=== PATIENT | female | born 1970 | race African-American/Black ===

== ENCOUNTER 2017-07-23 09:38 | Inpatient (IN) | payer BC, OTHER ==
[2017-07-23] MEDS ORDERED: hydrALAZINE HCL 20 MG/ML VIAL IVPUSH ONE ×2 (10:15→11:02)
--- NOTE | 2017-07-23 10:18 | PDOC ---
History of Present Illness - General Chief Complaint: Blood Pressure Problem Stated Complaint: HIGH BP Time Seen by Provider: 07/23/17 09:50 History Source: Patient Exam Limitations: No Limitations - History of Present Illness Initial Comments: 07/23/17 10:23 47 y.o. F with pmh of HTN (not on meds) presenting with headache and chest tightness. 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 Headache was frontal, nonradiating, and constant. Chest tightness was under the left breast and right rib, pressure like, nonradiating. Patient has never had these symptoms before. Patient also endorses nausea, slurred speech, blurry vision, diaphoresis, and left/right arm numbness (intermittently x few months). Patient denies shortness of breath, abdominal pain, V/D/C, dysuria, hematuria. PSH- denies All- NKDA SH- + Cocaine use (3 years, last use 1 week ago). +smoking (1/ ppd, 15 yrs). Denies alcohol PCP- Dr. Dorman, Y 07/23/17 14:34 NIH Stroke Scale - Last Known Well Date/Time & Onset Date Last Known Well: 07/22/17 Time Last Known Well: 15:00 - Initial Evaluation Level of consciousness: Alert Ask patient the month and their age: Answers both correctly Ask patient to open & close eyes; make fist and let go: Obeys both correctly Best gaze (horizontal eye movement): Normal Visual field testing: No visual field loss Facial paresis (Show teeth/raise eyebrows/close eyes tight): Normal symmetrical movement Motor Function: Left Arm: Normal Motor Function: Right Arm: Normal (extends arm 90 (or 45) degrees for 10 seconds without drift Motor Function: Left Leg: Normal (extends leg 30 degrees for 5 seconds without drift) Motor Function: Right Leg: Normal (extends leg 30 degrees for 5 seconds without drift) Limb Ataxia: No ataxia Sensory(Use pinprick test arms,legs,trunk,face/side to side): Normal Best language (Describe picture, name items, read sentences): No Aphasia Dysarthria (read several words): Normal articulation Extinction and Inattention: No abnormality - Total Score NIH Stroke Scale Score: 0 Past History - Past Medical History Allergies/Adverse Reactions: Allergies Allergy/AdvReac Type Severity Reaction Status Date / Time No Known Allergies Allergy Verified 07/23/17 09:39 Home Medications: Ambulatory Orders NK [No Known Home Medication] 07/23/17 HTN: Yes (NOT MEDICATED.) - Suicide/Smoking/Psychosocial Hx Smoking History: Current every day smoker Number of Cigarettes Smoked Daily: 6 Information on smoking cessation initiated: No Hx Alcohol Use: Yes (ON OCCASSION.) Drug/Substance Use Hx: No Substance Use Type: Alcohol Review of Systems - Review of Systems Able to Perform ROS?: Yes Comments:: 07/23/17 10:25 GENERAL/CONSTITUTIONAL: No fever or chills. No weakness HEAD, EYES, EARS, NOSE AND THROAT: +change in vision. +slurred speech, + headacheNo ear pain or discharge. No sore throat. CARDIOVASCULAR:+Chest pressure, No shortness of breath RESPIRATORY: No cough, wheezing, or hemoptysis. GASTROINTESTINAL: No nausea, vomiting, diarrhea or constipation. GENITOURINARY: No dysuria, frequency, or change in urination. MUSCULOSKELETAL: No joint or muscle swelling or pain. No neck or back pain. SKIN: No rash NEUROLOGIC: +headache, vertigo, loss of consciousness, or change in strength. + left/right arm numbness/tingling ENDOCRINE: No increased thirst. No abnormal weight change HEMATOLOGIC/LYMPHATIC: No anemia, easy bleeding, or history of blood clots. ALLERGIC/IMMUNOLOGIC: No hives or skin allergy. *Physical Exam - Vital Signs Last Vital Signs Temp Pulse Resp BP Pulse Ox 98.1 F 106 H 20 204/108 100 07/23/17 09:39 07/23/17 09:39 07/23/17 09:39 07/23/17 09:39 07/23/17 09:39 - Physical Exam Comments: 07/23/17 10:25 GENERAL: Awake, alert, and fully oriented, in no acute distress HEAD: No signs of trauma, normocephalic, atraumatic EYES: PERRLA, EOMI, sclera anicteric, conjunctiva clear ENT: Auricles normal inspection, hearing grossly normal, nares patent, oropharynx clear without exudates. Moist mucosa NECK: Normal ROM, supple, no lymphadenopathy, JVD, or masses LUNGS: No distress, speaks full sentences, clear to auscultation bilaterally HEART: Regular rate and rhythm, normal S1 and S2, no murmurs, rubs or gallops, peripheral pulses normal and equal bilaterally. ABDOMEN: Soft, nontender, normoactive bowel sounds. No guarding, no rebound. No masses EXTREMITIES: Normal inspection, Normal range of motion, no edema. No clubbing or cyanosis. NEUROLOGICAL: Cranial nerves II through XII grossly intact. Normal speech, no focal sensorimotor deficits. 5/5 strength bilaterally, sensation intact bilaterally. no cerebellar deficits. SKIN: Warm, Dry, normal turgor, no rashes or lesions noted. 07/23/17 14:35 ED Treatment Course - LABORATORY CBC & Chemistry Diagram: 07/23/17 10:22 07/23/17 10:22 - RADIOLOGY Radiology Studies Ordered: Category Date Time Status HEAD CT WITHOUT CONTRAST [CT] Stat CT Scan 07/23/17 10:45 Ordered Medical Decision Making - Medical Decision Making 07/23/17 10:33 47 y.o. F with pmh of HTN presenting with headache, chest pressure, and elevated BP. DDx: Hypertensive emergency, ACS, TIA, hemorrhagic stroke, PRES, SAH Plan: CBC, CMP, Mg, Phos, EKG, Cardiac Profile, UA, ucx, upreg, utox, 10 mg IV hydralazine, Head CT, Pain control 07/23/17 13:58 CBC, CMP unremarkable UA- Nitrite +, will give 1 dose of rocephin 1 g IV Utox- + for marijuana/cocaine 07/23/17 13:59 CT Head- Concerning for edema and elevated ICP- will order MRI brain w/o contrast. Patient given 324mg of aspiring Patient to be admitted to hospitalist. Patient accepted *DC/Admit/Observation/Transfer Diagnosis at time of Disposition: Hypertensive emergency - Discharge Dispostion Admit: Yes - Referrals Referrals: Adan Dorman [Primary Care Provider] -
[2017-07-23] MEDS ORDERED: ACETAMINOPHEN 325 MG TABLET (FP) PO ONE (10:19)
[2017-07-23] MEDS ORDERED: hydrALAZINE HCL 20 MG/ML VIAL ONE (10:24)
[2017-07-23] MEDS ORDERED: ACETAMINOPHEN 325 MG TABLET (FP) ONE (10:24)
--- NOTE | 2017-07-23 10:40 | PDOC ---
Attending Attestation - Resident Resident Name: Yovanny Pinto - ED Attending Attestation I have performed the following: I have examined & evaluated the patient, The case was reviewed & discussed with the resident, I agree w/resident's findings & plan, Exceptions are as noted - Medical Decision Making 07/23/17 10:37 A portion of this note was written by my scribe, under my supervision. Vital Signs Temp Pulse Resp BP Pulse Ox 98.1 F 102 H 17 209/121 100 07/23/17 09:39 07/23/17 10:30 07/23/17 10:30 07/23/17 10:30 07/23/17 10:31 47-year-old female with history of hypertension, not a medications, presents with headache and chest pain since yesterday. Patient reported gradual onset of tension-like headache without photophobia. Reports nausea and vomiting from the headache. Stated yesterday she also developed chest tightness worsened with exertion and shortness of breath. Reports some diaphoresis. Never had a stress test or an echo. Patient last use cocaine one week ago. This is concerning for hypertensive emergency. We'll need a head CT to rule out TIA and stroke given the patient was slurring her speech yesterday. We'll also need chest x-ray, troponin to rule out DC. It head CT done shows no bleed, we' ll give aspirin to the patient. For now, we'll avoid beta blockers given her cocaine history but we'll attempt to control her blood pressure. Ultimately, the patient should be admitted to the hospital for further management. <Robert Bautista - Last Filed: 07/23/17 10:40> - HPI HPI: 07/23/17 10:49 Patient is a 47 year old female with a significant past medical history of HTN who presents to the ED with complaints of headache that began 3pm yesterday. Patient reports frontal headache began yesterday at 3pm while sitting at work. She reports headache pain is intermittent and has been increasing gradually in intensity since it began yesterday. Patient reports experiencing episodes of nausea, and slurred speech yesterday secondary to headache. She report experiencing neck pain and chest pressure secondary to headache. She states she experienced blurred vision yesterday secondary with headache. Patient reports experiencing chest pressure, and intermittent SOB secondary to headache. Denies fever, chills. Denies vomiting, coughing. Denies any other symptoms. Allergies: None Surgical history: None Social history: Current cocaine user (last 1 week). Current Marijuana user. Social drinker. Current smoker (6 cigarettes per day). PMD: Dr. Dorman - Physicial Exam PE: 07/23/17 10:49 GENERAL: Awake, alert, and fully oriented, in no acute distress HEAD: No signs of trauma EYES: PERRLA, EOMI, sclera anicteric, conjunctiva clear ENT: Auricles normal inspection, hearing grossly normal, nares patent, oropharynx clear without exudates. Moist mucosa NECK: Normal ROM, supple, no lymphadenopathy, JVD, or masses LUNGS: Breath sounds equal, clear to auscultation bilaterally. No wheezes, and no crackles HEART: Regular rate and rhythm, normal S1 and S2, no murmurs, rubs or gallops ABDOMEN: Soft, nontender, normoactive bowel sounds. No guarding, no rebound. No masses EXTREMITIES: +5/5 strength in all extremities. +Sensations intact throughout. Normal range of motion, no edema. No clubbing or cyanosis. No cords, erythema, or tenderness NEUROLOGICAL: No pronator drift. Cranial nerves II through XII grossly intact. Normal speech, normal gait SKIN: Warm, Dry, normal turgor, no rashes or lesions noted. - Medical Decision Making 07/23/17 10:49 Documentation prepared by Tico Bartlett, acting as infertility medical assistant for Robert Bautista MD. <Tico Bartlett - Last Filed: 07/23/17 10:49> Heart Score/ECG Review - History History: Highly suspicious - Electrocardiogram EKG: Non specific repolarization disturbance - Age Age: 45-65 - Risk Factors Based on the list above the patient has:: 1-2 risk factors #1 ECG reviewed & interpreted by me at: 10:00 07/23/17 10:40 NSR 97, no std/renetta, normal axis ,normal intervals, LVH, QTC 454 msec <Robert Bautista - Last Filed: 07/23/17 10:40> NIH Stroke Scale - Last Known Well Date/Time & Onset Date Last Known Well: 07/22/17 - Initial Evaluation Level of consciousness: Alert Ask patient the month and their age: Answers both correctly Ask patient to open & close eyes; make fist and let go: Obeys both correctly Best gaze (horizontal eye movement): Normal Visual field testing: No visual field loss Facial paresis (Show teeth/raise eyebrows/close eyes tight): Normal symmetrical movement Motor Function: Left Arm: Normal Motor Function: Right Arm: Normal (extends arm 90 (or 45) degrees for 10 seconds without drift Motor Function: Left Leg: Normal (extends leg 30 degrees for 5 seconds without drift) Motor Function: Right Leg: Normal (extends leg 30 degrees for 5 seconds without drift) Limb Ataxia: No ataxia Sensory(Use pinprick test arms,legs,trunk,face/side to side): Normal Best language (Describe picture, name items, read sentences): No Aphasia Dysarthria (read several words): Normal articulation Extinction and Inattention: No abnormality - Total Score NIH Stroke Scale Score: 0 <Robert Bautista - Last Filed: 07/23/17 10:40>
[2017-07-23 11:20] LABS: URINE APPEARANCE SLCLOUDY; URINE BILIRUBIN NEGATIVE (NEGATIVE); URINE BLOOD NEGATIVE (NEGATIVE); URINE COLOR YELLOW; URINE GLUCOSE (UA) NEGATIVE (NEGATIVE); URINE KETONE TRACE (NEGATIVE); URINE NITRITE POSITIVE (NEGATIVE); URINE PROTEIN NEGATIVE (NEGATIVE); URINE UROBILINOGEN NEGATIVE mg/dL (0.2-1.0)
[2017-07-23 11:24] LABS: BASOPHIL 0.5 % (0-2.0); EOSINOPHIL 1.4 % (0-4.5); MCH 30.3 pg (25.7-33.7); MCHC 32.7 g/dl (32.0-36.0); MEAN CELL VOLUME 92.7 fl (80-96); NEUTROPHILS 72.7 % (42.8-82.8); PLATELET COUNT 232 K/MM3 (134-434); RDW 14.6 % (11.6-15.6); WHITE BLOOD COUNT 10.9 K/mm3 (4.0-10.0)
[2017-07-23 11:34] LABS: URINE BACTERIA RARE /hpf (NONE SEEN); URINE MUCUS RARE; URINE RBC 1 /hpf (0-3); URINE WBC 7 /hpf (3-5)
[2017-07-23 11:38] LABS: URINE MARIJUANA THC POSITIVE ng/ml (CUTOFF=50)
[2017-07-23 11:56] LABS: ALBUMIN 4.2 g/dl (3.4-5.0); ANION GAP 10 (8-16); BILIRUBIN,TOTAL 0.3 mg/dL (0.2-1.0); CALCIUM 9.5 mg/dL (8.5-10.1); CO2 25 mmol/L (21-32); CREATININE 0.9 mg/dL (0.55-1.02); GLUCOSE,RANDOM 89 mg/dL (74-106); MAGNESIUM 1.8 mg/dL (1.8-2.4); SGOT/AST 15 U/L (15-37); SGPT/ALT 20 U/L (12-78); TOT PROT 8.4 g/dl (6.4-8.2)
[2017-07-23 11:59] LABS: ALK PHOS 75 U/L (45-117); CPK 67 IU/L (26-192); TROPONIN I < 0.02 ng/ml (0.00-0.05)
--- NOTE | 2017-07-23 12:01 | EKG ---
Test Reason : Blood Pressure : / mmHG Vent. Rate : 097 BPM Atrial Rate : 097 BPM P-R Int : 130 ms QRS Dur : 078 ms QT Int : 358 ms P-R-T Axes : 076 026 071 degrees QTc Int : 454 ms NORMAL SINUS RHYTHM BIATRIAL ENLARGEMENT LEFT VENTRICULAR HYPERTROPHY NONSPECIFIC ST ABNORMALITY NO PREVIOUS ECGS AVAILABLE Confirmed by YAO ALEXANDER MD ([id number]) on 07/23/2017 12:01:23 PM Referred By: Confirmed By:YAO ALEXANDER MD
[2017-07-23] MEDS ORDERED: METOCLOPRAMIDE HCL INJECTION 10 MG/2 ML VIAL IVPUSH ONE (12:11)
[2017-07-23] MEDS ORDERED: METOCLOPRAMIDE HCL INJECTION 10 MG/2 ML VIAL ONE (12:14)
[2017-07-23] MEDS ORDERED: CEFTRIAXONE 1 GM in DEXTROSE 5%-WATER - 50 ML IVPB ONE (12:45)
[2017-07-23] MEDS ORDERED: CEFTRIAXONE 50 ML ONE (13:07)
[2017-07-23 13:22] LABS: URINE LEUK ESTERASE Negative (NEGATIVE)
[2017-07-23] MEDS ORDERED: ASPIRIN 325 MG TABLET PO ONE (14:00)
[2017-07-23] MEDS ORDERED: ASPIRIN 81 MG CHEWABLE TABLETS ONE (14:11)
[2017-07-23] MEDS ORDERED: LORazepam 2 MG/ML SDV VIAL ONE (16:16)
[2017-07-23] MEDS ORDERED: LORazepam 2 MG/ML SDV VIAL IVPUSH ONE (16:17)
--- NOTE | 2017-07-23 17:21 | PN ---
Teaching Attending Note Name of Resident: Nixon Hensley ATTENDING PHYSICIAN STATEMENT I saw and evaluated the patient. I reviewed the resident's note and discussed the case with the resident. I agree with the resident's findings and plan as documented. SUBJECTIVE:47yo F with PMH HTN (not on medications) and continuous cocaine abuse (snorts) presented to the ER with frontal KNIGHT, CP and slurred speech. Upon arrival found to have BP 209/121. was given Hydralazine 10mg IVP x2 with improvement in BP to 170/104. pt states the CP has since resolved but continues to have front KNIGHT and feels like her speech is improved but continues to have KNIGHT. denies blurred vision (although as per ER record had on presentation) , weakness, sensation changes, N/V/C/D. admits to urinary frequency. no dysuria or hematuria states she was told 2 years ago had HTN but was never placed on medications Last used cocaine 5 days ago OBJECTIVE: Last Vital Signs Temp Pulse Resp BP Pulse Ox 98.1 F 99 H 20 165/108 99 07/23/17 09:39 07/23/17 16:06 07/23/17 16:06 07/23/17 16:06 07/23/17 16:06 General drowsy, HEENT EOMI, PERRL CV S1 S2 RRR no murmur/rub/gallop no chest wall tenderness Lungs CTA B/L no wheezing/rales/rhonchi Neuro CN II - XII grossly intact, strength equal in all extremities, sensation grossly intact gait not tested ASSESSMENT AND PLAN: 47yo F with PMH HTN and continuous cocaine use presented with HTN and slurred speech 1. HTN emergency- will transfer this pt to MICU for close monitoring. CT head showing increased intracranial pressure with empty sella turcica. MRI stat ordered. spoke with Neurosurgery who will come and evaluate pt. will start on nicardipine ggt if BP elevates. goal SBP <170. avoid beta blockers. trend cardiac enzymes q8H, will give ativan for MRI. received asa in the ER will hold any other blood thinners 2. COntinous cocaine abuse- monitor for withdrawals. ativan prn. counseled on risks assoc with cocaine use. 3. UTI- start ceftriaxone. f/u cx 4. DVT ppx- scd 5. MICU monitoring. accepted to MICU The care of this patient involved high complexity decision making to prevent further life threatening deterioration of the patient's condition and/or to evaluate & treat vital organ system(s) failure or risk of failure. 50 minutes
--- NOTE | 2017-07-23 17:39 | CONSULT ---
Consultation: REQUESTING PROVIDER: Dr. Robert Bautista CONSULT REQUEST: We have been asked to medically evaluate this patient for Hypertensive Emergency HISTORY OF PRESENT ILLNESS: Patient is a 47 year old female with a PMHx of HTN, on no medication, and cocaine abuse who presented initially for nonradiating left-sided pressure like chest pain and tightness that started yesterday at work associated with a gradual onset of a tension-like frontal headache. Patient describes the headache as constant and interfering with her daily activities and associated with nausea and non-bilious nonbloody vomiting x2. Patient also states new onset of slurred speech that started yesterday associated with shortness of breath but has resolved since admission. Patient states she never had similar episodes in the past. Patient does admit to drug use, specifically cocaine, which she last took 5 days ago, and does admit to having a history of chest pain after using cocaine, but resolves immediately on its own. Patient also reports no history of stress test or echo and does not follow up with a social worker. In the ED patient was found to have an initial blood pressure of 209/121 and was given Hydralazine 10mg IV x2 with BP improvement. Chest pain resolved but frontal headache has been persistent. Head CT was done, which revealed edema and elevated ICP. Neurosurgeon was contacted and recommended MRI and ICU admission. Otherwise, patient denies and blurred vision, chest pain, palpitations, shortness of breath, dizziness, nausea, vomiting, abdominal pain, chills, fever, diarrhea, constipation. REVIEW OF SYSTEMS: CONSTITUTIONAL: Present: diaphoresis Absent: fever, chills, generalized weakness, malaise, loss of appetite, weight change HEENT: Absent: rhinorrhea, nasal congestion, throat pain, throat swelling, difficulty swallowing, mouth swelling, ear pain, eye pain, visual changes CARDIOVASCULAR: Present: chest pain Absent: syncope, palpitations, irregular heart rate, lightheadedness, peripheral edema RESPIRATORY: Present: shortness of breath Absent: cough, dyspnea with exertion, orthopnea, wheezing, stridor, hemoptysis GASTROINTESTINAL: Absent: abdominal pain, abdominal distension, nausea, vomiting, diarrhea, constipation, melena, hematochezia GENITOURINARY: Absent: dysuria, frequency, urgency, hesitancy, hematuria, flank pain, genital pain MUSCULOSKELETAL: Absent: myalgia, arthralgia, joint swelling, back pain, neck pain SKIN: Absent: rash, itching, pallor HEMATOLOGIC/IMMUNOLOGIC: Absent: easy bleeding, easy bruising, lymphadenopathy, frequent infections ENDOCRINE: Absent: unexplained weight gain, unexplained weight loss, heat intolerance, cold intolerance NEUROLOGIC: Present: headache, focal weakness or paresthesias Absent: dizziness, unsteady gait, seizure, mental status changes, bladder or bowel incontinence PSYCHIATRIC: Absent: anxiety, depression, suicidal or homicidal ideation, hallucinations. PHYSICAL EXAMINATION Vital Signs - 24 hr 07/23/17 16:06 Pulse Rate [ 99 H Apical] Respiratory 20 Rate Blood Pressure 165/108 [Right Arm] O2 Sat by Pulse 99 Oximetry (%) GENERAL: Awake, alert, and fully oriented, in no acute distress. HEAD: Normal with no signs of trauma. EYES: Pupils equal, round and reactive to light, extraocular movements intact, sclera anicteric, conjunctiva clear. No lid lag. EARS, NOSE, THROAT: Oropharynx clear without exudates. Moist mucous membranes. NECK: Normal range of motion, supple without lymphadenopathy, JVD, or masses. LUNGS: Breath sounds equal, clear to auscultation bilaterally. No wheezes, and no crackles. No accessory muscle use. HEART: Regular rate and rhythm, normal S1 and S2 without murmur, rub or gallop. ABDOMEN: Soft, nontender, not distended, normoactive bowel sounds, no guarding, no rebound, no masses. MUSCULOSKELETAL: No CVA tenderness. UPPER EXTREMITIES: No peripheral edema. LOWER EXTREMITIES: No peripheral edema. NEUROLOGICAL: Cranial nerves II-XII intact (CN VII) not evaluated. Normal speech. Motor strength 5/5 bilaterally. Sensory intact throughout Laboratory Results - last 24 hr 07/23/17 07/23/17 07/23/17 10:22 10:22 10:57 WBC 10.9 H RBC 4.65 Hgb 14.1 Hct 43.1 MCV 92.7 MCH 30.3 MCHC 32.7 RDW 14.6 Plt Count 232 MPV 9.0 Neutrophils % 72.7 Lymphocytes % 18.2 Monocytes % 7.2 Eosinophils % 1.4 Basophils % 0.5 Sodium 138 Potassium 3.5 Chloride 103 Carbon Dioxide 25 Anion Gap 10 BUN 10 Creatinine 0.9 Creat Clearance w eGFR > 60 Random Glucose 89 Calcium 9.5 Phosphorus 3.0 Magnesium 1.8 Total Bilirubin 0.3 AST 15 ALT 20 Alkaline Phosphatase 75 Creatine Kinase 67 Troponin I < 0.02 Total Protein 8.4 H Albumin 4.2 Urine Color Yellow Urine Appearance Slcloudy Urine pH 5.0 Ur Specific Renick 1.020 Urine Protein Negative Urine Glucose (UA) Negative Urine Ketones Trace H Urine Blood Negative Urine Nitrite Positive Urine Bilirubin Negative Urine Urobilinogen Negative Ur Leukocyte Esterase Negative Urine RBC 1 Urine WBC 7 Ur Epithelial Cells Rare Urine Bacteria Rare Urine Mucus Rare Urine HCG, Qual Negative Opiates Screen Methadone Screen Barbiturate Screen Phencyclidine Screen Ur Amphetamines Screen MDMA (Ecstasy) Screen Benzodiazepines Screen Cocaine Screen U Marijuana (THC) Screen 07/23/17 10:57 WBC RBC Hgb Hct MCV MCH MCHC RDW Plt Count MPV Neutrophils % Lymphocytes % Monocytes % Eosinophils % Basophils % Sodium Potassium Chloride Carbon Dioxide Anion Gap BUN Creatinine Creat Clearance w eGFR Random Glucose Calcium Phosphorus Magnesium Total Bilirubin AST ALT Alkaline Phosphatase Creatine Kinase Troponin I Total Protein Albumin Urine Color Urine Appearance Urine pH Ur Specific Renick Urine Protein Urine Glucose (UA) Urine Ketones Urine Blood Urine Nitrite Urine Bilirubin Urine Urobilinogen Ur Leukocyte Esterase Urine RBC Urine WBC Ur Epithelial Cells Urine Bacteria Urine Mucus Urine HCG, Qual Opiates Screen Negative Methadone Screen Negative Barbiturate Screen Negative Phencyclidine Screen Negative Ur Amphetamines Screen Negative MDMA (Ecstasy) Screen Negative Benzodiazepines Screen Negative Cocaine Screen Positive U Marijuana (THC) Screen Positive IMAGES: Head CT (07/23/17): 1. No evidence of acute intracranial hemorrhage or acute transcortical infarction. 2. Paucity of cerebral sulci throughout, concerning for edema and elevated intracranial pressure. Partially empty sella turcica. Please correlate clinically for papilledema. Further evaluation with contrast- enhanced MRI of the brain is recommended. Brain MRI (07/23/17): No discrete infarct, edema or other abnormal intracranial signal abnormality is identified. There is no mass lesion or abnormal contrast enhancement. No extra-axial fluid collection is noted. The ventricles, cisterns and craniocervical junction appear unremarkable. Signal void is seen within the intracranial vertebral and internal carotid arteries as well as the basilar artery consistent with vessel patency. Note is made of mild to moderate sphenoid sinus mucosal thickening consistent with subacute or chronic sinusitis. IMPRESSION: No definite intracranial abnormality is identified. Paranasal sinus disease. Chest X-Ray (07/23/17): Normal size and contours of the cardiomediastinal silhouette. The lungs are essentially clear with no evidence of pulmonary vascular congestion or pleural effusion. CT is more sensitive in detecting pulmonary nodules and non consolidative opacities. No definable pneumothorax. No abnormal deviation of the trachea IMPRESSION: Clear lungs. Normal size and contours of the cardiomediastinal silhouette. ASSESSMENT/PLAN: Patient is a 47 year old female with a PMHx of HTN, on no medication, and cocaine abuse who presented for chest pain and frontal headache. Patient was found to have hypertensive emergency with a head CT that revealed ICP and edema. Patient admitted to ICU for further monitoring and management. Neurology -AAA X3 -Still complains of headache due to elevated BP. -MRI done which revealed no edema or acute pathology -Neurosurgeon consult placed Cardiology #Hypertensive Emergency -Initial BP 209/121 -Hydralazine 10mg IVP x2 given with improvement -Head CT revealed ICP -MRI ordered which revealed no edema or intracranial abnormality. Does show mild to moderate sphenoid sinus mucosal thickening consistent with subacute or chronic sinusitis -Nicardipine drip will be ordered if SBP >170. -Avoid Beta blockers due to her history of cocaine abuse -Trend troponins q8h -Neurosurgeon consult placed Infectious Disease #UTI -Nitrite positive with pyuria -Ceftriaxone 1gm daily IVPB ordered Cocaine Abuse -Last use 5 days ago -Ativan PRN -No beta blockers to be given F/E/N -On no fluids -Electrolytes wnl -Sodium controlled diet Prophylaxis -Low risk. Ambulates, SCD's for DVT -No GI prophylaxis required Disposition -Full code -Monitor ICU overnight. Awaiting neuro consult Visit type - Emergency Visit Emergency Visit: Yes ED Registration Date: 07/23/17 Care time: The patient presented to the Emergency Department on the above date and was hospitalized for further evaluation of their emergent condition. - New Patient This patient is new to me today: Yes Date on this admission: 07/23/17 - Critical Care Critical Care patient: Yes Total Critical Care Time (in minutes): 45 Critical Care Statement: The care of this patient involved high complexity decision making to prevent further life threatening deterioration of the patient 's condition and/or to evaluate & treat vital organ system(s) failure or risk of failure.
--- NOTE | 2017-07-23 18:35 | HP ---
Admitting History and Physical - Admission Chief Complaint: Headache, elevated BP History of Present Illness: 47 yr old woman dx'd with HTN 2 yrs ago at [facility] on no medication, current smoker and cocaine user c/o frontal 07/27 headache since yesterday. She took her BP last night and found it was >200sbp/>100DBP. last cocaine use was wednesday, via snorting. 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 No: CHF Pulmonary: No: Asthma, Bronchitis, COPD, O2 Dependent Gastrointestinal: No: Cancer, Constipation Renal/: No: Hematuria Endocrine: No: Diabetes Mellitus Dermatology: Yes: Eczema - Past Surgical History Past Surgical History: Yes: None - Smoking History Smoking history: Current every day smoker Aproximately how many cigarettes per day: 6 - Alcohol/Substance Use Hx Alcohol Use: Yes (ON OCCASSION.) History of Substance Use: reports: Cocaine - Social History ADL: Independent History of Recent Travel: No Home Medications - Allergies Allergies/Adverse Reactions: Allergies Allergy/AdvReac Type Severity Reaction Status Date / Time No Known Allergies Allergy Verified 07/23/17 09:39 - Home Medications Home Medications: Ambulatory Orders NK [No Known Home Medication] 07/23/17 Family Disease History - Family Disease History Family Disease History: Other: Mother (HTN) Other Family History: grandmother with DM Review of Systems - Review of Systems Constitutional: denies: Fever Eyes: reports: Blurred Vision Neck: denies: Decreased ROM, Stiffness Respiratory: denies: Cough Gastrointestinal: reports: No Symptoms Genitourinary: reports: Frequency Integumentary: reports: Eczema Neurological: reports: Change in Speech Physical Examination Vital Signs: Vital Signs Temperature 98.1 F 07/23/17 09:39 Pulse Rate 99 H 07/23/17 16:06 Respiratory Rate 20 07/23/17 16:06 Blood Pressure 165/108 07/23/17 16:06 O2 Sat by Pulse Oximetry (%) 99 07/23/17 16:06 Constitutional: Yes: Well Nourished, Calm Eyes: Yes: Conjunctiva Clear, EOM Intact, PERRL HENT: Yes: Atraumatic, Normocephalic. No: Nasal Congestion, Pharyngeal Erythema , Rhinnorhea Neck: Yes: Supple, Trachea Midline. No: Lymphadenopathy, Tenderness, Thyromegaly Cardiovascular: Yes: Tachycardia, S1. No: Murmur Respiratory: Yes: Regular, CTA Bilaterally. No: Rhonchi, Wheezes Gastrointestinal: Yes: Normal Bowel Sounds, Soft Musculoskeletal: No: Joint Stiffness, Joint Swelling, Muscle Weakness Extremities: No: Calf Tenderness, Erythema Edema: No Peripheral Pulses WNL: Yes Peripheral Pulses: Left Radial: 2+, Right Radial: 2+, Left Doralis Pedis: 2+, Right Dorsalis Pedis: 2+ Integumentary: Yes: Other (hyperpigmented skin on right forearm) Neurological: Yes: Alert, Cran Nerves II-XII Intact. No: Confusion, Facial Droop, Loss of Sensation, Tingling, Tremors, Unsteady Gait ...Motor Strength: LUE (5/5 at biceps/triceps/shoulders, handgrip), LLE (5/5 at hip/knee/ankle extension and flexion), RUE (5/5 at biceps/triceps/shoulders, handgrip), RLE (5/5 at hip/knee/ankle extension and flexion) Psychiatric: Yes: Alert, Oriented Imaging - Results Cat Scan: Report Reviewed MRI: Report Reviewed Assessment/Plan 47 yr old woman with current cocain use(recent on Wednesday via snorting), dx'd with HTN 2 yrs ago but not medications presents with headache. #Hypertensive Urgency - edema/papilledema noted on head ct - neurosurg evaluation pending, Dr. Duvall - mri with no definite intracranial abnormality is identified, paranasal disease identified, however finds of increased intracranial pressure may not be demonstrable on MRI - repeat trops q8h and continous cardiac monitoring - ICU monitoring - consider cardene drip to maintain goal SBP<170 #Smoking cessation - will provide cessation materials upon discharge - defer #Substance abuse - will provide rehab information at discharge if patient is interested #dvt: avoid medical ac due to risk of hemorrhage, scd's #diet; low sodium Visit type - Emergency Visit Emergency Visit: Yes ED Registration Date: 07/23/17 Care time: The patient presented to the Emergency Department on the above date and was hospitalized for further evaluation of their emergent condition. - New Patient This patient is new to me today: Yes Date on this admission: 07/23/17 - Critical Care Critical Care patient: Yes Total Critical Care Time (in minutes): 35 Critical Care Statement: The care of this patient involved high complexity decision making to prevent further life threatening deterioration of the patient 's condition and/or to evaluate & treat vital organ system(s) failure or risk of failure.
--- NOTE | 2017-07-23 18:36 | HP ---
CHIEF COMPLAINT: High blood pressure, headache PCP: Dr. Dorman HISTORY OF PRESENT ILLNESS: The patient is a 47 yo f w/ PMH HTN who presents to the ED complaining of Headache, chest tightness and high blood pressure for the past 1 day. The patient was at work when she began to experience a frontal headache which was nonradiating and constant. The headache was associated with blurred vision, tightness in the chest, nausea and slurred speech which began at 5pm on the night prior to admission and had resolved by the time she had awoken the next day. The patient took her blood pressure at home and found it to be in the 200's , prompting her to come to the ED. The patient was diagnosed with HTN by her PCP , but was never placed on medication as it normalized during her next visit. Patient denies SOB, back pain, abdominal pain, vomiting, diarrhea. Patient also endorses urinary frequency. ER course was notable for: (1) BP 209/121 on admission (2) 10mg hydralazine x2, reglan, ASA 325 in ED (3) Recent Travel: none PAST MEDICAL HISTORY: none PAST SURGICAL HISTORY: none Social History: Smoking: smokes 5-6 cigarettes per day for the past 10 years Alcohol: social drinker Drugs: Marijuana and cocaine (2 times per month, last use wednesday) Family History: -HTN in mother and maternal grandmother -DM in grandmother Allergies No Known Allergies Allergy (Verified 07/23/17 09:39) HOME MEDICATIONS: Home Medications Medication Instructions Recorded NK [No Known Home Medication] 07/23/17 REVIEW OF SYSTEMS CONSTITUTIONAL: Absent: fever, chills, diaphoresis, generalized weakness, malaise, loss of appetite, weight change HEENT: Absent: rhinorrhea, nasal congestion, throat pain, throat swelling, difficulty swallowing, mouth swelling, ear pain, eye pain, visual changes CARDIOVASCULAR: Absent: chest pain, syncope, palpitations, irregular heart rate, lightheadedness , peripheral edema RESPIRATORY: Absent: cough, shortness of breath, dyspnea with exertion, orthopnea, wheezing, stridor, hemoptysis GASTROINTESTINAL: Absent: abdominal pain, abdominal distension, nausea, vomiting, diarrhea, constipation, melena, hematochezia GENITOURINARY: Absent: dysuria, frequency, urgency, hesitancy, hematuria, flank pain, genital pain MUSCULOSKELETAL: Absent: myalgia, arthralgia, joint swelling, back pain, neck pain SKIN: Absent: rash, itching, pallor HEMATOLOGIC/IMMUNOLOGIC: Absent: easy bleeding, easy bruising, lymphadenopathy, frequent infections ENDOCRINE: Absent: unexplained weight gain, unexplained weight loss, heat intolerance, cold intolerance NEUROLOGIC: Absent: headache, focal weakness or paresthesias, dizziness, unsteady gait, seizure, mental status changes, bladder or bowel incontinence PSYCHIATRIC: Absent: anxiety, depression, suicidal or homicidal ideation, hallucinations. PHYSICAL EXAMINATION Vital Signs - 24 hr 07/23/17 16:06 Pulse Rate [ 99 H Apical] Respiratory 20 Rate Blood Pressure 165/108 [Right Arm] O2 Sat by Pulse 99 Oximetry (%) GENERAL: Awake, alert, and fully oriented, in no acute distress. HEAD: Normal with no signs of trauma. EYES: Pupils equal, round and reactive to light, extraocular movements intact, sclera anicteric, conjunctiva clear. No lid lag. NECK: Normal range of motion, supple without lymphadenopathy, JVD, or masses. LUNGS: Breath sounds equal, clear to auscultation bilaterally. No wheezes, and no crackles. No accessory muscle use. HEART: Regular rate and rhythm, normal S1 and S2 without murmur, rub or gallop. ABDOMEN: Soft, nontender, not distended, normoactive bowel sounds, no guarding, no rebound, no masses. No hepatomegaly or splenomegaly. MUSCULOSKELETAL: Normal range of motion at all joints. No bony deformities or tenderness. No CVA tenderness. UPPER EXTREMITIES: 2+ pulses, warm, well-perfused. No cyanosis. No clubbing. No peripheral edema. LOWER EXTREMITIES: 2+ pulses, warm, well-perfused. No calf tenderness. No peripheral edema. NEUROLOGICAL: Cranial nerves II-X intact. Normal speech. Normal gait. PSYCHIATRIC: Cooperative. Good eye contact. Appropriate mood and affect. SKIN: Warm, dry, normal turgor, no rashes or lesions noted, normal capillary refill. ASSESSMENT/PLAN: The patient is a 47 yo f w/ PMH HTN comes into the ED c/o high blood pressure, headache and chest tightness. Patient is admitted to the ICU for hypertensive emergency w/ increased ICP. #Hypertensive emergency -s/p hydralazine IV 10mg x2 in ed -s/p reglan in ed -s/p asa 325 once -trend cardiac enzymes q8h -lipid profile -Echo -neurosurgery consult -utox positive for cocaine and marijuana -CT head concerning for possible Edema vs increased ICP -MRI brain shows paranasal sinus disease without intracranial abnormalities -AM CBC, CMP, MAG, PHOS #UTI -trace ketones, positive nitrites, 7 wbcs -Patient endorses urinary frequency -s/p 1g rocephin in the Ed -c/w 1g rocephin daily -urine cx pending -a1c in AM #FEN -no fluids indicated at this time -monitor lytes -sodium controlled diet #prophylaxsis -SCDs -no GI prophy indicated at this time #Dispo -admitted to ICU for treatment of hypertensive emergency Problem List - Problem (1) Hypertensive emergency Code(s): I16.1 - HYPERTENSIVE EMERGENCY Visit type - Emergency Visit Emergency Visit: Yes ED Registration Date: 07/23/17 Care time: The patient presented to the Emergency Department on the above date and was hospitalized for further evaluation of their emergent condition. - New Patient This patient is new to me today: Yes Date on this admission: 07/23/17 - Critical Care Critical Care patient: Yes Total Critical Care Time (in minutes): 35 Critical Care Statement: The care of this patient involved high complexity decision making to prevent further life threatening deterioration of the patient 's condition and/or to evaluate & treat vital organ system(s) failure or risk of failure.
[2017-07-23 19:37] VITALS: BMI 23.3
--- NOTE | 2017-07-23 20:44 | CONSULT ---
Consult Consult Specialty:: PULM / CCM Referred by:: Dr. Katherine Daly Reason for Consultation:: R/o ICP - History of Present Illness Chief Complaint: KNIGHT History of Present Illness: Ms. Yang is a 47 y/o woman (pt of Dr. Dorman,ClarkJaxon Coates) w/ a PMHx/o cigarette smoker, HTN (not on meds) who presents to the ED today c/o KNIGHT & chest tightness X 24Hrs. 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 Pt's story changes from provider to provider. In the ED the Pt desrcibed a frontal KNIGHT, nonradiating, & constant w/o photophobia. The pt described her chest tightness as a nonradiating pressure under her L breast and R rib. The pt also endorsed nausea, slurred speech, blurry vision, diaphoresis, as well as B/L arm numbness (intermittently x past few months). Patient denied any SOB, abd pain, V/D/C, dysuria, or hematuria to one physician but then endorsed SOB to Dr. Bautista. Pt claimed her last cocaine use was one week in the past, however, her U-Tox is + Cocaine as well as marijuana. NCHCT was initially c/f possible elevated ICP. F/u MRI unremark. UA is Nitrite positive. 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 but was never on medications). No: CHF Pulmonary: No: Asthma, Bronchitis, COPD, O2 Dependent Gastrointestinal: No: Cancer, Constipation Renal/: No: Hematuria ...: No Endocrine: No: Diabetes Mellitus Dermatology: Yes: Eczema - Past Surgical History Past Surgical History: Yes: None - Alcohol/Substance Use Hx Alcohol Use: Yes (ON OCCASSION.) History of Substance Use: reports: Cocaine - Smoking History Smoking history: Current every day smoker Have you smoked in the past 12 months: Yes Aproximately how many cigarettes per day: 6 - Social History ADL: Independent History of Recent Travel: No Home Medications - Allergies Allergies/Adverse Reactions: Allergies Allergy/AdvReac Type Severity Reaction Status Date / Time No Known Allergies Allergy Verified 07/23/17 09:39 - Home Medications Home Medications: Ambulatory Orders NK [No Known Home Medication] 07/23/17 Family Disease History - Family Disease History Family History: Denies Family Disease History: Other: Mother (HTN) Other Family History: grandmother with DM Review of Systems - Review of Systems Constitutional: reports: Diaphoresis, Malaise Eyes: reports: Blurred Vision HENT: reports: No Symptoms Neck: reports: No Symptoms Cardiovascular: reports: Chest Pain, Shortness of Breath Respiratory: reports: SOB on Exertion Gastrointestinal: reports: Vomiting Genitourinary: reports: No Symptoms Breasts: reports: No Symptoms Reported Musculoskeletal: reports: No Symptoms Neurological: reports: Change in Speech (Reported Slurred Speech (No observed slurred speech).) Endocrine: reports: No Symptoms Hematology/Lymphatic: reports: No Symptoms Psychiatric: reports: No Symptoms Pain Intensity: 10 Physical Exam Vital Signs: Vital Signs Temperature 98.1 F 07/23/17 09:39 Pulse Rate 115 H 07/23/17 19:49 Respiratory Rate 20 07/23/17 19:49 Blood Pressure 151/118 07/23/17 19:49 O2 Sat by Pulse Oximetry (%) 99 07/23/17 16:06 Constitutional: Yes: Well Nourished, No Distress, Calm Eyes: Yes: WNL, Conjunctiva Clear, EOM Intact HENT: Yes: WNL, Atraumatic, Normocephalic Neck: Yes: WNL, Supple, Trachea Midline Cardiovascular: Yes: WNL, Regular Rate and Rhythm Respiratory: Yes: WNL, Regular, CTA Bilaterally Gastrointestinal: Yes: WNL, Normal Bowel Sounds, Soft ...Rectal Exam: Yes: Deferred Renal/: Yes: WNL Breast(s): Yes: WNL Musculoskeletal: Yes: WNL Extremities: Yes: WNL Edema: No Peripheral Pulses WNL: Yes Integumentary: Yes: WNL Neurological: Yes: WNL, Alert, Oriented ...Motor Strength: WNL Psychiatric: Yes: WNL Labs: CBC, BMP 07/23/17 10:22 07/23/17 10:22 Troponin, BNP 07/23/17 10:22 Troponin I < 0.02 Urine Test Results Urine Color Yellow 07/23/17 10:57 Urine Appearance Slcloudy 07/23/17 10:57 Urine pH 5.0 (5.0-8.0) 07/23/17 10:57 Ur Specific Humphrey 1.020 (1.005-1.025) 07/23/17 10:57 Urine Protein Negative (NEGATIVE) 07/23/17 10:57 Urine Glucose (UA) Negative (NEGATIVE) 07/23/17 10:57 Urine Ketones Trace (NEGATIVE) H 07/23/17 10:57 Urine Blood Negative (NEGATIVE) 07/23/17 10:57 Urine Nitrite Positive (NEGATIVE) 07/23/17 10:57 Urine Bilirubin Negative (NEGATIVE) 07/23/17 10:57 Ur Leukocyte Esterase Negative (NEGATIVE) 07/23/17 10:57 Urine RBC 1 /hpf (0-3) 07/23/17 10:57 Urine WBC 7 /hpf (3-5) 07/23/17 10:57 Ur Epithelial Cells Rare /hpf (FEW) 07/23/17 10:57 Urine Bacteria Rare /hpf (NONE SEEN) 07/23/17 10:57 Urine Mucus Rare 07/23/17 10:57 Imaging - Results Chest X-ray: Image Reviewed (07/23: Clear (My Read).) Cat Scan: Report Reviewed (07/23: C/f possible elevated ICP.) MRI: Report Reviewed (07/23: Unremark.) EKG: Image Reviewed (07/23: NSR 97, no std/renetta, normal axis ,normal intervals, LVH, QTC 454 msec) Problem List - Problems (1) Hypertensive emergency Code(s): I16.1 - HYPERTENSIVE EMERGENCY Assessment/Plan ASSESS: This is a 47 y/o woman w/ HTN, cigarette smoker, PSA admitted to the ICU w/ c/f elevated ICP. MRI brain shows no ICP. PLAN: -Ceftriax X 7 Days for UTI -Maintain goal SBP<170 -Can use hydralazine pushes for HTN storms -No BB (Cocaine abuser w/ cocaine on board) -Repeat trops q8h X 2 -D/c Tobacco -D/c Cocaine -SQH -SCDs -Low Na+ Diet -Immediate D/c out of ICU. -F/u w/ Dr. Dorman,Adan Coates -Neurosurgeon, Dr. Duvall to follow Thank you for this interesting Consult [facility] ICU 4436 PULM / CCM Critical Care Time/MDM Note Total Critical Care Time: 39 Critical Care Statement: The care of this patient involved high complexity decision making to prevent further life threatening deterioration of the patient 's condition and/or to evaluate & treat vital organ system(s) failure or risk of failure.
[2017-07-23] MEDS: MUPIROCIN 2% TOPICAL OINTMENT FOR DECOLONIZATION NS SCH (21:16)
[2017-07-23] MEDS: CHLORHEXIDINE GLUCONATE 4% CLEANSER FOR DECOLONIZATION TP SCH (21:17)
[2017-07-23 21:24] LABS: TROPONIN I 0.07 ng/ml (0.00-0.05)
[2017-07-24 00:02] LABS: TROPONIN I 0.06 ng/ml (0.00-0.05)
[2017-07-24 06:05] LABS: BASOPHIL 0.2 % (0-2.0); EOSINOPHIL 1.3 % (0-4.5); MCH 30.3 pg (25.7-33.7); MCHC 32.8 g/dl (32.0-36.0); MEAN CELL VOLUME 92.6 fl (80-96); MEAN PLT VOLUME 8.9 fl (7.5-11.1); NEUTROPHILS 74.2 % (42.8-82.8); PLATELET COUNT 215 K/MM3 (134-434); RDW 14.6 % (11.6-15.6); WHITE BLOOD COUNT 8.3 K/mm3 (4.0-10.0)
[2017-07-24 06:32] LABS: ALBUMIN 3.8 g/dl (3.4-5.0); ALK PHOS 64 U/L (45-117); ANION GAP 11 (8-16); BILIRUBIN,TOTAL 0.4 mg/dL (0.2-1.0); CALCIUM 8.9 mg/dL (8.5-10.1); CO2 25 mmol/L (21-32); CREATININE 0.9 mg/dL (0.55-1.02); GLUCOSE,RANDOM 87 mg/dL (74-106); MAGNESIUM 1.9 mg/dL (1.8-2.4); PHOSPHOROUS 3.4 mg/dL (2.5-4.9); SGOT/AST 17 U/L (15-37); SGPT/ALT 18 U/L (12-78); TOT PROT 7.2 g/dl (6.4-8.2)
[2017-07-24 07:43] LABS: TROPONIN I 0.02 ng/ml (0.00-0.05)
[2017-07-24] MEDS: MUPIROCIN 2% TOPICAL OINTMENT FOR DECOLONIZATION NS SCH ×2 (09:19→21:57)
[2017-07-24] MEDS: cefTRIAXone 1 GM/50 ML BAG (PRE-DOCKED) IVPB SCH (09:19)
[2017-07-24] MEDS ORDERED: CEFTRIAXONE 1 GM in DEXTROSE 5%-WATER - 50 ML IVPB SCH (10:00)
[2017-07-24] MEDS ORDERED: FLU VACCINE QUAD 60 MCG/0.5 ML (MDV 17-18) IM ONE (10:00)
[2017-07-24] MEDS ORDERED: amLODIPine BESYLATE 5 MG TABLET (FP) PO ONE (10:11)
[2017-07-24] MEDS: hydrALAZINE HCL 20 MG/ML VIAL IVPUSH PRN ×2 (10:15→17:47)
[2017-07-24] MEDS ORDERED: hydrALAZINE HCL 20 MG/ML VIAL IVPUSH ONE (10:25)
--- NOTE | 2017-07-24 10:30 | PN ---
Progress Note (short form) - Note Progress Note: PULM / CCM Pt Seen & Examined in the ICU. Pt in NAD. Pt states feeling 100% better. No Hydralazine pushes needed O/N. ACTIVE MEDS Amlodipine Besylate (Norvasc -) 5 mg PO ONCE ONE Stop: 07/24/17 10:12 Ceftriaxone Sodium (Rocephin 1gm Ivpb (Pre-Docked)) 1 gm IVPB DAILY LISA Last Admin: 07/24/17 09:19 Dose: 1 gm Chlorhexidine Gluconate (Hibiclens For Decolonization -) 1 applic TP HS LISA Last Admin: 07/23/17 21:17 Dose: 1 applic Hydralazine HCl (Apresoline Injection -) 10 mg IVPUSH Q6H PRN PRN Reason: HYPERTENSION Last Admin: 07/24/17 10:15 Dose: 10 mg Mupirocin (Bactroban Ointment (For Decolonization) -) 1 applic NS BID LISA Stop: 07/28/17 21:59 Last Admin: 07/24/17 09:19 Dose: 1 applic V/S Temp 98.0 F 07/24/17 10:00 Pulse 96 H 07/24/17 10:00 Resp 18 07/24/17 10:00 BP 167/106 07/24/17 10:00 Pulse Ox 99 07/24/17 08:00 I's & O's 07/23/17 07/23/17 07/24/17 11:59 23:59 11:59 Weight 56.699 kg 63.503 kg Other: Voiding Method Bedpan Toilet # Unmeasured Voids Void 2 Bowel Movement No No Height 5 ft 5 in 5 ft 5 in Body Mass Index (BMI) 20.7 23.3 Weight Measurement Method Built in [facility] GEN: Middle aged woman, well nourished, appears her stated age, CA+OX3, NAD HEENT: PERRL, an-icteric, O-P Clear PULM: CTAB CV: nml S1 S2, RR, unable to appreciate any G/M/R ABD: + BS, S/S N/T N/D X4Q EXT: + Pulses, WWPX4, (-) edema SKIN: No obvious rashes, lesions, or ulcers BACK: NOT rolled on this exam NEURO: CN II - XII grossly intact, CADENA, follows all, (-) Focal deficit CBC, BMP 07/24/17 05:45 07/24/17 05:45 Microbiology 07/23/17 10:57 Urine - Urine Clean Catch Urine Culture - Preliminary Lactose Fermenting Neg Bacilli ASSESS: This is a 47 y/o woman w/ HTN, cigarette smoker, PSA admitted to the ICU w/ c/f elevated ICP. MRI brain shows no ICP. ALL S & S resolved @ this time. PLAN: -Ceftriax X 7 Days for UTI -Maintain goal SBP<170 -Norvasc 10 QD -Lisinopril 10 QD -Can use hydralazine pushes for HTN spikes -No BB (Cocaine abuser w/ cocaine on board) -Repeat trops q8h X 2 -D/c Tobacco -D/c Cocaine -SQH -SCDs -Low Na+ Diet -Immediate D/c out of ICU. -F/u w/ Dr. Dorman,Adan Coates -Neurosurgeon, Dr. Duvall to follow [facility] ICU 4436 PULM / CCM Critical Care Total Critical Care Time (in minutes): 38 Critical Care Statement: The care of this patient involved high complexity decision making to prevent further life threatening deterioration of the patient 's condition and/or to evaluate & treat vital organ system(s) failure or risk of failure. Problem List - Problems (1) Hypertensive emergency Code(s): I16.1 - HYPERTENSIVE EMERGENCY
--- NOTE | 2017-07-24 11:30 | PN ---
Progress Note (short form) - Note Progress Note: states KNIGHT has resolved. Chest tightness and slurred speech have resolved. denies CP, SOB, fever, chills, blurred vision, N/V/C/D Current Medications Generic Name Dose Route Start Last Admin Trade Name Freq PRN Reason Stop Dose Admin Amlodipine Besylate 10 mg 07/25/17 10:00 Norvasc - PO DAILY LISA Ceftriaxone Sodium 1 gm 07/24/17 10:00 07/24/17 09:19 Rocephin 1gm Ivpb (Pre-Docked) IVPB 1 gm DAILY LISA Administration Chlorhexidine Gluconate 1 applic 07/23/17 22:00 07/23/17 21:17 Hibiclens For Decolonization - TP 1 applic HS LISA Administration Hydralazine HCl 10 mg 07/23/17 21:17 07/24/17 10:15 Apresoline Injection - IVPUSH 10 mg Q6H PRN Administration HYPERTENSION Lisinopril 10 mg 07/24/17 22:00 Prinivil PO BID LISA Mupirocin 1 applic 07/23/17 22:00 07/24/17 09:19 Bactroban Ointment (For Decolonization) - NS 07/28/17 21:59 1 applic BID LISA Administration Last Vital Signs Temp Pulse Resp BP Pulse Ox 98.0 F 96 H 18 167/106 99 07/24/17 10:00 07/24/17 10:00 07/24/17 10:00 07/24/17 10:00 07/24/17 08:00 General A&O x3 HEENT EOMI, PERRL CV S1 S2 RRR no murmur/rub/gallop no chest wall tenderness Lungs CTA B/L no wheezing/rales/rhonchi Neuro CN II - XII grossly intact, strength equal in all extremities, sensation grossly intact gait not tested CBCD WBC 8.3 K/mm3 (4.0-10.0) 07/24/17 05:45 RBC 4.57 M/mm3 (3.60-5.2) 07/24/17 05:45 Hgb 13.9 GM/dL (10.7-15.3) 07/24/17 05:45 Hct 42.3 % (32.4-45.2) 07/24/17 05:45 MCV 92.6 fl (80-96) 07/24/17 05:45 MCHC 32.8 g/dl (32.0-36.0) 07/24/17 05:45 RDW 14.6 % (11.6-15.6) 07/24/17 05:45 Plt Count 215 K/MM3 (134-434) 07/24/17 05:45 MPV 8.9 fl (7.5-11.1) 07/24/17 05:45 CMP Sodium 139 mmol/L (136-145) 07/24/17 05:45 Potassium 3.5 mmol/L (3.5-5.1) 07/24/17 05:45 Chloride 103 mmol/L (98-107) 07/24/17 05:45 Carbon Dioxide 25 mmol/L (21-32) 07/24/17 05:45 Anion Gap 11 (8-16) 07/24/17 05:45 BUN 11 mg/dL (7-18) 07/24/17 05:45 Creatinine 0.9 mg/dL (0.55-1.02) 07/24/17 05:45 Creat Clearance w eGFR > 60 (>60) 07/24/17 05:45 Calcium 8.9 mg/dL (8.5-10.1) 07/24/17 05:45 Total Bilirubin 0.4 mg/dL (0.2-1.0) D 07/24/17 05:45 AST 17 U/L (15-37) 07/24/17 05:45 ALT 18 U/L (12-78) 07/24/17 05:45 Alkaline Phosphatase 64 U/L (45-117) 07/24/17 05:45 Total Protein 7.2 g/dl (6.4-8.2) 07/24/17 05:45 Albumin 3.8 g/dl (3.4-5.0) 07/24/17 05:45 Microbiology 07/23/17 10:57 Urine Culture - Preliminary Urine - Urine Clean Catch Lactose Fermenting Neg Bacilli ASSESSMENT AND PLAN: 47yo F with PMH HTN and continuous cocaine use presented with HTN and slurred speech 1. HTN emergency-improved. cardiac enzymes neg x 3. however BP 180/120. will give hydralazine 10mg IVP stat and start oral agents. norvasc 5mg and lisinopril 10mg bid. titrate to optimize BP. MRI negative for increased intracranial pressure. no acute pathology. no neurological deficits. will need to slowly lower the BP. awaiting neurosurgery eval. avoid betablockers. echo pending 2. COntinous cocaine abuse- no signs of withdrawal. counseled on risks assoc with cocaine use. expresses desire to stop using. will refer to NA when discharged. 3. UTI- on ceftriaxone day 2. f/u cx 4. DVT ppx- scd 5. MICU monitoring due to elevated BP The care of this patient involved high complexity decision making to prevent further life threatening deterioration of the patient's condition and/or to evaluate & treat vital organ system(s) failure or risk of failure. 38 minutes Visit type - Emergency Visit Emergency Visit: Yes ED Registration Date: 07/23/17 Care time: The patient presented to the Emergency Department on the above date and was hospitalized for further evaluation of their emergent condition. - New Patient This patient is new to me today: No - Critical Care Critical Care patient: Yes Total Critical Care Time (in minutes): 38 Critical Care Statement: The care of this patient involved high complexity decision making to prevent further life threatening deterioration of the patient 's condition and/or to evaluate & treat vital organ system(s) failure or risk of failure. - Discharge Referral Referred to [facility] No
--- NOTE | 2017-07-24 18:49 | PN ---
Progress Note (short form) - Note Progress Note: Asked to see this pleasant 47 year old female who was admitted yesterday with slurred speech and hypertensive crisis. CT was suggestive of increased intracranial pressure without evidence of hemorrhage. Differential diagnosis included acute hypertension versus cerebrovascular insufficiency/stroke. MRI was generally unremarkable and patient's deficits resolved. On examination today, the patient reports resolution of her headaches with patient being alert and orientated x 3. Patient's speech is fluid and she is able to repeat without difficulty. She moves all extremities normally and with apparently full power. No pronator drift or extinction to double simultaneous stimulation. Visual vaca are normal to confrontation testing and she denies any visual disturbance/ difficulties or enlargement of her blind spot. MRI report suggested evaluation for papiledema and although clinically this does not seem likely, fundoscopic examination would be warranted. Given uncontrolled hypertension and cocaine usage, potential retinal sequellae of hypertensive episodes may be evaluated as well. Given transient neurological deficit (speech slurring) and need for fundoscopic evaluation, Neurology consultation may be appropriate. Patient still having hypertensive episodes with SBP rising to 169 while at rest despite IV Hydralazine. No acute Neurosurgical intervention is planned, however , I feel that until her intracranial processes are determined to be stable and her blood pressure is reliably under control, she would benefit from additional ICU management.
[2017-07-24] MEDS: LISINOPRIL 10 MG TABLET (FP) PO SCH (21:57)
[2017-07-24] MEDS: CHLORHEXIDINE GLUCONATE 4% CLEANSER FOR DECOLONIZATION TP SCH (21:57)
[2017-07-25 06:47] LABS: ALBUMIN 3.8 g/dl (3.4-5.0); ANION GAP 8 (8-16); BILIRUBIN,TOTAL 0.4 mg/dL (0.2-1.0); CO2 26 mmol/L (21-32); CREATININE 0.9 mg/dL (0.55-1.02); GLUCOSE,RANDOM 95 mg/dL (74-106); SGOT/AST 13 U/L (15-37); SGPT/ALT 17 U/L (12-78)
[2017-07-25 06:49] LABS: ALK PHOS 65 U/L (45-117); TOT PROT 7.5 g/dl (6.4-8.2)
--- NOTE | 2017-07-25 10:02 | PN ---
Progress Note (short form) - Note Progress Note: c/o intermittent KNIGHT assoc with elevated BP. no slurred speech, blurred vision or weakness or sensation loss. denies CP, SOB, fever, chills, blurred vision, N/ V/C/D Current Medications Generic Name Dose Route Start Last Admin Trade Name Freq PRN Reason Stop Dose Admin Amlodipine Besylate 10 mg 07/25/17 10:00 Norvasc - PO DAILY LISA Ceftriaxone Sodium 1 gm 07/24/17 10:00 07/24/17 09:19 Rocephin 1gm Ivpb (Pre-Docked) IVPB 1 gm DAILY LISA Administration Chlorhexidine Gluconate 1 applic 07/23/17 22:00 07/24/17 21:57 Hibiclens For Decolonization - TP 1 applic HS LISA Administration Hydralazine HCl 10 mg 07/23/17 21:17 07/24/17 17:47 Apresoline Injection - IVPUSH 10 mg Q6H PRN Administration HYPERTENSION Lisinopril 10 mg 07/24/17 22:00 07/24/17 21:57 Prinivil PO 10 mg BID LISA Administration Mupirocin 1 applic 07/23/17 22:00 07/24/17 21:57 Bactroban Ointment (For Decolonization) - NS 07/28/17 21:59 1 applic BID LISA Administration Last Vital Signs Temp Pulse Resp BP Pulse Ox 97.8 F 90 18 160/84 99 07/25/17 08:00 07/25/17 08:00 07/25/17 08:00 07/25/17 08:00 07/24/17 20:00 General A&O x3 HEENT EOMI, PERRL CV S1 S2 RRR no murmur/rub/gallop no chest wall tenderness Lungs CTA B/L no wheezing/rales/rhonchi Neuro CN II - XII grossly intact, strength equal in all extremities, sensation grossly intact gait not tested CBCD WBC 8.3 K/mm3 (4.0-10.0) 07/24/17 05:45 RBC 4.57 M/mm3 (3.60-5.2) 07/24/17 05:45 Hgb 13.9 GM/dL (10.7-15.3) 07/24/17 05:45 Hct 42.3 % (32.4-45.2) 07/24/17 05:45 MCV 92.6 fl (80-96) 07/24/17 05:45 MCHC 32.8 g/dl (32.0-36.0) 07/24/17 05:45 RDW 14.6 % (11.6-15.6) 07/24/17 05:45 Plt Count 215 K/MM3 (134-434) 07/24/17 05:45 MPV 8.9 fl (7.5-11.1) 07/24/17 05:45 CMP Sodium 138 mmol/L (136-145) 07/25/17 06:00 Potassium 3.9 mmol/L (3.5-5.1) 07/25/17 06:00 Chloride 104 mmol/L (98-107) 07/25/17 06:00 Carbon Dioxide 26 mmol/L (21-32) 07/25/17 06:00 Anion Gap 8 (8-16) 07/25/17 06:00 BUN 12 mg/dL (7-18) 07/25/17 06:00 Creatinine 0.9 mg/dL (0.55-1.02) 07/25/17 06:00 Creat Clearance w eGFR > 60 (>60) 07/25/17 06:00 Calcium 9.0 mg/dL (8.5-10.1) 07/25/17 06:00 Total Bilirubin 0.4 mg/dL (0.2-1.0) 07/25/17 06:00 AST 13 U/L (15-37) L D 07/25/17 06:00 ALT 17 U/L (12-78) 07/25/17 06:00 Alkaline Phosphatase 65 U/L (45-117) 07/25/17 06:00 Total Protein 7.5 g/dl (6.4-8.2) 07/25/17 06:00 Albumin 3.8 g/dl (3.4-5.0) 07/25/17 06:00 Microbiology 07/23/17 10:57 Urine Culture - Final Urine - Urine Clean Catch Escherichia Coli ASSESSMENT AND PLAN: 47yo F with PMH HTN and continuous cocaine use presented with HTN and slurred speech 1. HTN emergency-improved but remains labile. assoc with symptoms. as per RN, radiologist called to report concern for papilledema. will consult optho and neuro eval to r/o. started on norvasc 10mg and lisinopril increased to BID, will monitor hydralazine prn. will continue monitoring in the ICU as presented with transient cerebral edema and neurological deficits. spoke with neurosurgery yesterday who agrees with plan. avoid betablockers. echo pending 2. COntinous cocaine abuse- no signs of withdrawal. counseled on risks assoc with cocaine use. expresses desire to stop using. will refer to NA when discharged. 3. UTI-+ Ecoli. on ceftriaxone day 3. will d/c after today 4. DVT ppx- scd 5. MICU monitoring due to elevated BP The care of this patient involved high complexity decision making to prevent further life threatening deterioration of the patient's condition and/or to evaluate & treat vital organ system(s) failure or risk of failure. 35 minutes Visit type - Emergency Visit Emergency Visit: Yes ED Registration Date: 07/23/17 Care time: The patient presented to the Emergency Department on the above date and was hospitalized for further evaluation of their emergent condition. - New Patient This patient is new to me today: No - Critical Care Critical Care patient: Yes Total Critical Care Time (in minutes): 35 Critical Care Statement: The care of this patient involved high complexity decision making to prevent further life threatening deterioration of the patient 's condition and/or to evaluate & treat vital organ system(s) failure or risk of failure. - Discharge Referral Referred to [facility] No
[2017-07-25] MEDS: LISINOPRIL 10 MG TABLET (FP) PO SCH ×2 (10:42→21:09)
[2017-07-25] MEDS: cefTRIAXone 1 GM/50 ML BAG (PRE-DOCKED) IVPB SCH (10:42)
[2017-07-25] MEDS: amLODIPine BESYLATE 10 MG TABLET (FP) PO SCH (10:42)
[2017-07-25] MEDS: MUPIROCIN 2% TOPICAL OINTMENT FOR DECOLONIZATION NS SCH ×2 (10:43→21:13)
--- NOTE | 2017-07-25 11:00 | PN ---
Progress Note (short form) - Note Progress Note: Seen and examined in ICU intermittent KNIGHT w/ increased BP Currently denies: n/v/KNIGHT/CP/SOB/cough/blurry vision Current Medications Amlodipine Besylate (Norvasc -) 10 mg PO DAILY [facility] Last Admin: 07/25/17 10:42 Dose: 10 mg Ceftriaxone Sodium (Rocephin 1gm Ivpb (Pre-Docked)) 1 gm IVPB DAILY LISA Last Admin: 07/25/17 10:42 Dose: 1 gm Chlorhexidine Gluconate (Hibiclens For Decolonization -) 1 applic TP HS LISA Last Admin: 07/24/17 21:57 Dose: 1 applic Hydralazine HCl (Apresoline Injection -) 10 mg IVPUSH Q6H PRN PRN Reason: HYPERTENSION Last Admin: 07/24/17 17:47 Dose: 10 mg Lisinopril (Prinivil) 10 mg PO BID LISA Last Admin: 07/25/17 10:42 Dose: 10 mg Mupirocin (Bactroban Ointment (For Decolonization) -) 1 applic NS BID LISA Stop: 07/28/17 21:59 Last Admin: 07/25/17 10:43 Dose: 1 applic Vital Signs Period Temp Pulse Resp BP Sys/Chance Pulse Ox Last 24 Hr 97.8 F-98.7 F 76-111 14-18 116-205/33-167 99-99 Intake & Output 07/22/17 07/23/17 07/24/17 07/25/17 23:59 23:59 23:59 23:59 Intake Total 600 Balance 600 Weight 63.503 kg CBCD WBC 8.3 K/mm3 (4.0-10.0) 07/24/17 05:45 RBC 4.57 M/mm3 (3.60-5.2) 07/24/17 05:45 Hgb 13.9 GM/dL (10.7-15.3) 07/24/17 05:45 Hct 42.3 % (32.4-45.2) 07/24/17 05:45 MCV 92.6 fl (80-96) 07/24/17 05:45 MCHC 32.8 g/dl (32.0-36.0) 07/24/17 05:45 RDW 14.6 % (11.6-15.6) 07/24/17 05:45 Plt Count 215 K/MM3 (134-434) 07/24/17 05:45 MPV 8.9 fl (7.5-11.1) 07/24/17 05:45 CMP Sodium 138 mmol/L (136-145) 07/25/17 06:00 Potassium 3.9 mmol/L (3.5-5.1) 07/25/17 06:00 Chloride 104 mmol/L (98-107) 07/25/17 06:00 Carbon Dioxide 26 mmol/L (21-32) 07/25/17 06:00 Anion Gap 8 (8-16) 07/25/17 06:00 BUN 12 mg/dL (7-18) 07/25/17 06:00 Creatinine 0.9 mg/dL (0.55-1.02) 07/25/17 06:00 Creat Clearance w eGFR > 60 (>60) 07/25/17 06:00 Random Glucose 95 mg/dL (74-106) 07/25/17 06:00 Calcium 9.0 mg/dL (8.5-10.1) 07/25/17 06:00 Total Bilirubin 0.4 mg/dL (0.2-1.0) 07/25/17 06:00 AST 13 U/L (15-37) L D 07/25/17 06:00 ALT 17 U/L (12-78) 07/25/17 06:00 Alkaline Phosphatase 65 U/L (45-117) 07/25/17 06:00 Total Protein 7.5 g/dl (6.4-8.2) 07/25/17 06:00 Albumin 3.8 g/dl (3.4-5.0) 07/25/17 06:00 CARDIAC ENZYMES Creatine Kinase 56 IU/L (26-192) 07/24/17 07:00 Troponin I 0.02 ng/ml (0.00-0.05) 07/24/17 07:00 ASSESS: This is a 47 y/o woman w/ HTN, cigarette smoker, PSA admitted to the ICU w/ c/f elevated ICP. PLAN: -Ceftriax X 3 Days for UTI -Maintain goal SBP<170 -Norvasc, lisinpril increased -Hydralazine pushes for HTN spikes -No BB (Cocaine abuser w/ cocaine on board) -Repeat trops q8h X 2 -SQH -SCDs -Low Na+ Diet -F/u w/ Dr. Dorman,Adan Coates -Neurosurgeon, Dr. Duvall to follow [facility] Pulm/CCM CCT: 35m
--- NOTE | 2017-07-25 15:24 | PN ---
Progress Note (short form) - Note Progress Note: Patient resting comfortably in bed. Speech is fluent and patient without focal Neurological deficit and has no visual complaints. Blood pressure control is improving. Will follow patient with team.
[2017-07-25] MEDS: CHLORHEXIDINE GLUCONATE 4% CLEANSER FOR DECOLONIZATION TP SCH (21:09)
--- NOTE | 2017-07-26 06:31 | PN ---
Physical Exam: SUBJECTIVE: Patient seen and examined at bedside. She feels much better today. No more headaches, blurry vision or slurring of speech overnight. Patient's blood pressure remains slightly elevated. OBJECTIVE: Vital Signs Period Temp Pulse Resp BP Sys/Chance Pulse Ox Last 24 Hr 97.1 F-98.6 F 60-92 18-20 108-188/68-109 99-99 GENERAL: The patient is awake, alert, and fully oriented, in no acute distress. HEAD: Normal with no signs of trauma. EYES: extraocular movements intact, sclera anicteric, conjunctiva clear. No ptosis. NECK: Trachea midline, full range of motion, supple. LUNGS: Breath sounds equal, clear to auscultation bilaterally, no wheezes, no crackles, no accessory muscle use. HEART: Regular rate and rhythm, S1, S2 without murmur, rub or gallop. ABDOMEN: Soft, nontender, nondistended, normoactive bowel sounds, no guarding, no rebound, no hepatosplenomegaly, no masses. EXTREMITIES: 2+ pulses, warm, well-perfused, no edema. NEUROLOGICAL: Cranial nerves II through X grossly intact. Normal speech, gait not observed. PSYCH: Normal mood, normal affect. SKIN: Warm, dry, normal turgor, no rashes or lesions noted Laboratory Results - last 24 hr 07/25/17 06:00 Sodium 138 Potassium 3.9 Chloride 104 Carbon Dioxide 26 Anion Gap 8 BUN 12 Creatinine 0.9 Creat Clearance w eGFR > 60 Random Glucose 95 Calcium 9.0 Total Bilirubin 0.4 AST 13 L D ALT 17 Alkaline Phosphatase 65 Total Protein 7.5 Albumin 3.8 Active Medications Generic Name Dose Route Start Last Admin Trade Name [place]ool PRN Reason Stop Dose Admin Amlodipine Besylate 10 mg 07/25/17 10:00 07/25/17 10:42 Norvasc - PO 10 mg DAILY LISA Administration Ceftriaxone Sodium 1 gm 07/24/17 10:00 07/25/17 10:42 Rocephin 1gm Ivpb (Pre-Docked) IVPB 1 gm DAILY LISA Administration Chlorhexidine Gluconate 1 applic 07/23/17 22:00 07/25/17 21:09 Hibiclens For Decolonization - TP 1 applic HS LISA Administration Hydralazine HCl 10 mg 07/23/17 21:17 07/24/17 17:47 Apresoline Injection - IVPUSH 10 mg Q6H PRN Administration HYPERTENSION Lisinopril 10 mg 07/24/17 22:00 07/25/17 21:09 Prinivil PO 10 mg BID LISA Administration Mupirocin 1 applic 07/23/17 22:00 07/25/17 21:13 Bactroban Ointment (For Decolonization) - NS 07/28/17 21:59 1 applic BID LISA Administration ASSESSMENT/PLAN: The patient is a 47 yo f w/ PMH HTN comes into the ED c/o high blood pressure, headache and chest tightness. Patient is admitted to the ICU for hypertensive emergency w/ increased ICP. #Hypertensive emergency -Norvasc 10mg daily -lisinopril 10mg BID increased to 20mg BID today -hydralazine IVPB q6h PRN SBP >180 -Echo WNL -neurosurgery: no intervention indicated -Neurology: c/w current management -utox positive for cocaine and marijuana -CT head concerning for possible Edema vs increased ICP -MRI brain shows paranasal sinus disease without intracranial abnormalities #UTI -u/a: trace ketones, positive nitrites, 7 wbcs -Patient endorses urinary frequency -completed 3 days of rocephin #FEN -no fluids indicated at this time -monitor lytes -sodium controlled diet #prophylaxsis -SCDs -no GI prophy indicated at this time #Dispo -Being transferred to floor as per ICU team -Stable for discharge tomorrow if patient's blood pressure remains stable Problem List - Problems (1) Hypertensive emergency Code(s): I16.1 - HYPERTENSIVE EMERGENCY Visit type - Emergency Visit Emergency Visit: Yes ED Registration Date: 07/23/17 Care time: The patient presented to the Emergency Department on the above date and was hospitalized for further evaluation of their emergent condition. - New Patient This patient is new to me today: No - Critical Care Critical Care patient: Yes Total Critical Care Time (in minutes): 30 Critical Care Statement: The care of this patient involved high complexity decision making to prevent further life threatening deterioration of the patient 's condition and/or to evaluate & treat vital organ system(s) failure or risk of failure.
--- NOTE | 2017-07-26 08:42 | PN ---
Physical Exam: 24H events: -c/o intermittent KNIGHT w/ increased BP SUBJECTIVE: Patient seen and examined in ICU. No complaints this morning. Denies KNIGHT, blurry vision, chest pain, and SOB. OBJECTIVE: Vital Signs Period Temp Pulse Resp BP Sys/Chance Pulse Ox Last 24 Hr 97.1 F-98.6 F 60-92 18-20 108-188/68-109 99-100 Intake & Output 07/23/17 07/24/17 07/25/17 07/26/17 23:59 23:59 23:59 23:59 Intake Total 600 50 250 Balance 600 50 250 Weight 63.503 kg 61.292 kg GENERAL: aaox3, nad, lying comfortably in bed EYES: sclera anicteric, conjunctiva clear ENT: oropharynx clear without exudates, moist mucous membranes LUNGS: CTAB, no no wheezes, no crackles, no accessory muscle use. HEART: rrr, normal S1/S2, no murmur, rub or gallop. ABDOMEN: Soft, ntnd EXTREMITIES: 2+ pulses, wwp, no LE edema CBC, BMP 07/24/17 05:45 07/25/17 06:00 Hepatic Panel Total Bilirubin 0.4 mg/dL (0.2-1.0) 07/25/17 06:00 AST 13 U/L (15-37) L D 07/25/17 06:00 ALT 17 U/L (12-78) 07/25/17 06:00 Alkaline Phosphatase 65 U/L (45-117) 07/25/17 06:00 Albumin 3.8 g/dl (3.4-5.0) 07/25/17 06:00 Microbiology 07/23/17 10:57 Urine - Urine Clean Catch Urine Culture - Final Escherichia Coli Active Medications Amlodipine Besylate (Norvasc -) 10 mg PO DAILY LISA Last Admin: 07/25/17 10:42 Dose: 10 mg Ceftriaxone Sodium (Rocephin 1gm Ivpb (Pre-Docked)) 1 gm IVPB DAILY LISA Last Admin: 07/25/17 10:42 Dose: 1 gm Chlorhexidine Gluconate (Hibiclens For Decolonization -) 1 applic TP HS LISA Last Admin: 07/25/17 21:09 Dose: 1 applic Hydralazine HCl (Apresoline Injection -) 10 mg IVPUSH Q6H PRN PRN Reason: HYPERTENSION Last Admin: 07/24/17 17:47 Dose: 10 mg Lisinopril (Prinivil) 10 mg PO BID [facility] Last Admin: 07/25/17 21:09 Dose: 10 mg Mupirocin (Bactroban Ointment (For Decolonization) -) 1 applic NS BID LISA Stop: 07/28/17 21:59 Last Admin: 07/25/17 21:13 Dose: 1 applic ASSESSMENT/PLAN: 47yo F admitted for hypertensive emergency in the setting of cocain abuse (Utox + cocaine and THC) with e/o increased ICP on head CT, however, negative on Brain MRI. Patient's KNIGHT and chest tightness are resolving. #ID E coli + UTI -d/c Ceftriaxone (day 3) #Neuro -neurosurgery consulted -neurology consulted -neuro checks qshift #CV -Maintain goal SBP<170 -start ASA 81mg PO daily -Continue amlodipine 10mg PO qd and lisinopril 20mg PO BID for HTN -Hydralazine IVPUSH prn for for HTN spikes -No BB (Cocaine abuser) -f/u ECHO -f/u lipid panel -trend cardiac enzymes #FEN -Hold IVF -lytes wnl -Na controlled diet #PPX -DVT - scd's -ppi - not indicated Dispo: transfer to M/S d/w with Dr. Nhan Corona MD PGY-1 Visit type - Emergency Visit Emergency Visit: No - New Patient This patient is new to me today: Yes Date on this admission: 07/26/17 - Critical Care Critical Care patient: Yes Total Critical Care Time (in minutes): 35 Critical Care Statement: The care of this patient involved high complexity decision making to prevent further life threatening deterioration of the patient 's condition and/or to evaluate & treat vital organ system(s) failure or risk of failure.
[2017-07-26] MEDS: amLODIPine BESYLATE 10 MG TABLET (FP) PO SCH (09:33)
[2017-07-26] MEDS: LISINOPRIL 10 MG TABLET (FP) PO SCH ×2 (09:34→21:35)
[2017-07-26] MEDS: cefTRIAXone 1 GM/50 ML BAG (PRE-DOCKED) IVPB SCH (09:35)
[2017-07-26] MEDS ORDERED: ASPIRIN COATED 81 MG TABLET.EC PO SCH (10:00)
--- NOTE | 2017-07-26 10:24 | CONSULT ---
Consult - text type - Consultation Consultation Note: Neurology 47 y.o. F with pmh of HTN (not on meds) presenting with headache and chest tightness. 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 Headache was frontal, nonradiating, and constant. Chest tightness was under the left breast and right rib, pressure like, nonradiating. She completed CT head which was reviewed and there was concern for increased intracranial pressure. NSGY consulted, no surgical management, but patient beleived to be hypertensive urgency/emergency and sent to ICU where she remains under close monitoring. MRI brain completed and without acute changes. Clinically, patient's symptoms impoved as blood pressure improved. Does not have visual symptoms, no blurry vision, no double vision, no scotomas. Past History - Past Medical History Allergies/Adverse Reactions: Allergies Allergy/AdvReac Type Severity Reaction Status Date / Time No Known Allergies Allergy Verified 07/23/17 09:39 Home Medications: Ambulatory Orders NK [No Known Home Medication] 07/23/17 HTN: Yes (NOT MEDICATED.) - Suicide/Smoking/Psychosocial Hx Smoking History: Current every day smoker Number of Cigarettes Smoked Daily: 6 Information on smoking cessation initiated: No Hx Alcohol Use: Yes (ON OCCASSION.) Drug/Substance Use Hx: No Substance Use Type: Alcohol Review of Systems GENERAL/CONSTITUTIONAL: No fever or chills. No weakness HEAD, EYES, EARS, NOSE AND THROAT: no visual complaints CARDIOVASCULAR:+Chest pressure, No shortness of breath RESPIRATORY: No cough, wheezing, or hemoptysis. GASTROINTESTINAL: No nausea, vomiting, diarrhea or constipation. GENITOURINARY: No dysuria, frequency, or change in urination. MUSCULOSKELETAL: No joint or muscle swelling or pain. No neck or back pain. SKIN: No rash NEUROLOGIC: +headache, vertigo, loss of consciousness, or change in strength. + left/right arm numbness/tingling ENDOCRINE: No increased thirst. No abnormal weight change HEMATOLOGIC/LYMPHATIC: No anemia, easy bleeding, or history of blood clots. ALLERGIC/IMMUNOLOGIC: No hives or skin allergy. *Physical Exam Last Vital Signs Temp Pulse Resp BP Pulse Ox 98.5 F 82 18 158/95 100 07/26/17 10:20 07/26/17 10:19 07/26/17 10:19 07/26/17 10:19 07/26/17 07:34 GENERAL: Awake, alert, and fully oriented, in no acute distress HEAD: No signs of trauma, normocephalic, atraumatic EYES: PERRLA, EOMI, sclera anicteric, conjunctiva clear ENT: Auricles normal inspection, hearing grossly normal, nares patent, oropharynx clear without exudates. Moist mucosa NECK: Normal ROM, supple, no lymphadenopathy, JVD, or masses LUNGS: No distress, speaks full sentences, clear to auscultation bilaterally HEART: Regular rate and rhythm, normal S1 and S2, no murmurs, rubs or gallops, peripheral pulses normal and equal bilaterally. ABDOMEN: Soft, nontender, normoactive bowel sounds. No guarding, no rebound. No masses EXTREMITIES: Normal inspection, Normal range of motion, no edema. No clubbing or cyanosis. NEUROLOGICAL: Cranial nerves II through XII grossly intact. Normal speech, no focal sensorimotor deficits. 5/5 strength bilaterally, sensation intact bilaterally. no cerebellar deficits. SKIN: Warm, Dry, normal turgor, no rashes or lesions noted. CBCD WBC 8.3 K/mm3 (4.0-10.0) 07/24/17 05:45 RBC 4.57 M/mm3 (3.60-5.2) 07/24/17 05:45 Hgb 13.9 GM/dL (10.7-15.3) 07/24/17 05:45 Hct 42.3 % (32.4-45.2) 07/24/17 05:45 MCV 92.6 fl (80-96) 07/24/17 05:45 MCHC 32.8 g/dl (32.0-36.0) 07/24/17 05:45 RDW 14.6 % (11.6-15.6) 07/24/17 05:45 Plt Count 215 K/MM3 (134-434) 07/24/17 05:45 MPV 8.9 fl (7.5-11.1) 07/24/17 05:45 CMP Sodium 138 mmol/L (136-145) 07/25/17 06:00 Potassium 3.9 mmol/L (3.5-5.1) 07/25/17 06:00 Chloride 104 mmol/L (98-107) 07/25/17 06:00 Carbon Dioxide 26 mmol/L (21-32) 07/25/17 06:00 Anion Gap 8 (8-16) 07/25/17 06:00 BUN 12 mg/dL (7-18) 07/25/17 06:00 Creatinine 0.9 mg/dL (0.55-1.02) 07/25/17 06:00 Creat Clearance w eGFR > 60 (>60) 07/25/17 06:00 Calcium 9.0 mg/dL (8.5-10.1) 07/25/17 06:00 Total Bilirubin 0.4 mg/dL (0.2-1.0) 07/25/17 06:00 AST 13 U/L (15-37) L D 07/25/17 06:00 ALT 17 U/L (12-78) 07/25/17 06:00 Alkaline Phosphatase 65 U/L (45-117) 07/25/17 06:00 Total Protein 7.5 g/dl (6.4-8.2) 07/25/17 06:00 Albumin 3.8 g/dl (3.4-5.0) 07/25/17 06:00 - RADIOLOGY CT head and MRI brain reviewed Plan: 47 y.o. F with pmh of HTN (not on meds) presenting with headache and chest tightness. 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 Headache was frontal, nonradiating, and constant. Chest tightness was under the left breast and right rib, pressure like, nonradiating. She completed CT head which was reviewed and there was concern for increased intracranial pressure. NSGY consulted, no surgical management, but patient beleived to be hypertensive urgency/emergency and sent to ICU where she remains under close monitoring. MRI brain completed and without acute changes. Clinically, patient's symptoms impoved as blood pressure improved. Does not have visual symptoms, no blurry vision, no double vision, no scotomas. Continue treatment of BP Goal < 160 for now, <140 as outpatient Appreciate NSGY consult Neurologically improving Critical care time in ICU: 40 mins
--- NOTE | 2017-07-26 12:25 | PN ---
Teaching Attending Note Name of Resident: Kristina Corona ATTENDING PHYSICIAN STATEMENT I saw and evaluated the patient. I reviewed the resident's note and discussed the case with the resident. I agree with the resident's findings and plan as documented. SUBJECTIVE: Pt seen and examined in the ICU. Denies headache, nausea or vomiting or vision changes. BP better controlled. No shortness of breath or chest pain. OBJECTIVE: Last Vital Signs Temp Pulse Resp BP Pulse Ox 98.5 F 82 18 158/95 100 07/26/17 10:20 07/26/17 10:19 07/26/17 10:19 07/26/17 10:19 07/26/17 07:34 Intake & Output 07/23/17 07/24/17 07/25/17 07/26/17 23:59 23:59 23:59 23:59 Intake Total 600 50 250 Balance 600 50 250 Weight 140 lb 135 lb 2 oz Gen: NAD at rest Heart: RRR Lung: decreased breath sounds at the bases Abd: soft, nontender Ext: no edema CBC, BMP 07/24/17 05:45 07/25/17 06:00 Active Medications Amlodipine Besylate (Norvasc -) 10 mg PO DAILY [facility] Last Admin: 07/26/17 09:33 Dose: 10 mg Aspirin (Ecotrin -) 81 mg PO DAILY [facility] Last Admin: 07/26/17 09:33 Dose: 81 mg Chlorhexidine Gluconate (Hibiclens For Decolonization -) 1 applic TP HS [facility] Last Admin: 07/25/17 21:09 Dose: 1 applic Hydralazine HCl (Apresoline Injection -) 10 mg IVPUSH Q6H PRN PRN Reason: HYPERTENSION Last Admin: 07/24/17 17:47 Dose: 10 mg Lisinopril (Prinivil) 10 mg PO BID [facility] Last Admin: 07/26/17 09:34 Dose: 10 mg Mupirocin (Bactroban Ointment (For Decolonization) -) 1 applic NS BID [facility] Stop: 07/28/17 21:59 Last Admin: 07/25/17 21:13 Dose: 1 applic ASSESSMENT AND PLAN: Hypertensive Urgency Cocaine Use Smoker UTI treated - BP control with oral meds - echocardiogram - tobacco/cocaine cessation - s/p antibiotics - DVT prophylaxis - can monitor on floor
--- NOTE | 2017-07-26 14:09 | PN ---
Teaching Attending Note Name of Resident: Nixon Hensley ATTENDING PHYSICIAN STATEMENT I saw and evaluated the patient. I reviewed the resident's note and discussed the case with the resident. I agree with the resident's findings and plan as documented. SUBJECTIVE:asymptomatic. denies Cp, SOB, fever, chills, N/V/C/D OBJECTIVE: Last Vital Signs Temp Pulse Resp BP Pulse Ox 98.5 F 95 H 20 151/118 100 07/26/17 10:20 07/26/17 12:00 07/26/17 12:00 07/26/17 12:00 07/26/17 07:34 General NAD CV S1 S2 RRR no murmur/Rub/gallop Lungs CTA B/L no wheezing/rales/rhonchi ASSESSMENT AND PLAN: 47yo F with PMH HTN and continuous cocaine use presented with HTN and slurred speech 1. HTN emergency-improved but remains labile. no longer symptomatic. evaluated by neurology. started on low dose asa. echo done with no WMA or increased wall thickness. if BP remains > 150/90 can be d/c home if remains elevated should remain hospitalized for further BP titration as she high risk for CVA. 2. COntinous cocaine abuse- no signs of withdrawal. counseled on risks assoc with cocaine use. expresses desire to stop using. will refer to NA when discharged. 3. UTI-+ Ecoli. - completed 3 day course abx 4. DVT ppx- scd 5. if BP is controlled can be d/c home, if remains elevated can be transferred to the floors and monitored overnight. The care of this patient involved high complexity decision making to prevent further life threatening deterioration of the patient's condition and/or to evaluate & treat vital organ system(s) failure or risk of failure. 38 minutes
[2017-07-26] MEDS: MUPIROCIN 2% TOPICAL OINTMENT FOR DECOLONIZATION NS SCH ×2 (17:02→21:34)
[2017-07-26] MEDS ORDERED: hydrALAZINE HCL 20 MG/ML VIAL IVPUSH PRN (19:52)
--- NOTE | 2017-07-26 19:59 | PN ---
Progress Note (short form) - Note Progress Note: Patient is resting comfortably with BP 129/90. Neurologically nonfocal. At this point, no Neurosurgical intervention is anticipated and I will sign off. Thank you.
[2017-07-26] MEDS ORDERED: CHLORHEXIDINE GLUCONATE 4% CLEANSER FOR DECOLONIZATION TP SCH (22:00)
[2017-07-27 06:15] LABS: MCH 30.5 pg (25.7-33.7); MCHC 32.8 g/dl (32.0-36.0); MEAN CELL VOLUME 93.2 fl (80-96); MEAN PLT VOLUME 8.8 fl (7.5-11.1); PLATELET COUNT 235 K/MM3 (134-434); RDW 14.3 % (11.6-15.6); WHITE BLOOD COUNT 7.5 K/mm3 (4.0-10.0)
[2017-07-27 06:36] LABS: ANION GAP 10 (8-16); CALCIUM 9.1 mg/dL (8.5-10.1); CO2 25 mmol/L (21-32); CREATININE 0.9 mg/dL (0.55-1.02); GLUCOSE,RANDOM 87 mg/dL (74-106); MAGNESIUM 2.3 mg/dL (1.8-2.4); PHOSPHOROUS 3.5 mg/dL (2.5-4.9)
--- NOTE | 2017-07-27 08:08 | PN ---
Physical Exam: 24H Events: no acute events SUBJECTIVE: Patient seen and examined in ICU. No complaints this morning. Denies KNIGHT, blurry vision, chest pain, and SOB. OBJECTIVE: Vital Signs Period Temp Pulse Resp BP Sys/Chance Pulse Ox Last 24 Hr 97.6 F-98.5 F 63-95 15-20 121-170/84-118 100 Intake & Output 07/24/17 07/25/17 07/26/17 07/27/17 23:59 23:59 23:59 23:59 Intake Total 872 75 2765 200 Balance 206 34 4665 200 Weight 61.292 kg GENERAL: aaox3, nad, lying comfortably in bed EYES: sclera anicteric, conjunctiva clear ENT: oropharynx clear without exudates, moist mucous membranes LUNGS: CTAB, no no wheezes, no crackles, no accessory muscle use. HEART: rrr, normal S1/S2, no murmur, rub or gallop. ABDOMEN: Soft, ntnd EXTREMITIES: 2+ pulses, wwp, no LE mayank CBC, BMP 07/27/17 05:00 07/27/17 05:00 Ca - 9.1 Phos - 3.5 Mg - 2.3 Hepatic Panel Total Bilirubin 0.4 mg/dL (0.2-1.0) 07/25/17 06:00 AST 13 U/L (15-37) L D 07/25/17 06:00 ALT 17 U/L (12-78) 07/25/17 06:00 Alkaline Phosphatase 65 U/L (45-117) 07/25/17 06:00 Albumin 3.8 g/dl (3.4-5.0) 07/25/17 06:00 Active Medications Amlodipine Besylate (Norvasc -) 10 mg PO DAILY [facility] Aspirin (Ecotrin -) 81 mg PO DAILY [facility] Chlorhexidine Gluconate (Hibiclens For Decolonization -) 1 applic TP HS [facility] Last Admin: 07/26/17 21:35 Dose: 1 applic Hydralazine HCl (Apresoline Injection -) 10 mg IVPUSH Q6H PRN PRN Reason: HYPERTENSION Lisinopril (Prinivil) 20 mg PO BID [facility] Last Admin: 07/26/17 21:35 Dose: 20 mg Mupirocin (Bactroban Ointment (For Decolonization) -) 1 applic NS BID [facility] Stop: 07/28/17 21:59 Last Admin: 07/26/17 21:34 Dose: 1 applic ASSESSMENT/PLAN: 47yo F admitted for hypertensive emergency in the setting of cocain abuse (Utox + cocaine and THC) with concern for increased ICP on head CT, however, negative on Brain MRI. Patient's KNIGHT and chest tightness have resolved. #ID E coli + UTI -Completed 3 day course Ceftriaxone #Neuro -neurosurgery consulted -neurology consulted -neuro checks qshift #CV -Per Neurology: SBP goal < 160 for now, <140 as outpatient -cont ASA 81mg PO daily -continue amlodipine 10mg PO qd and lisinopril 20mg PO BID for HTN -Hydralazine [id number] prn for for HTN spikes -No BB (Cocaine abuser) #FEN -Hold IVF -lytes wnl -Na controlled diet #PPX -DVT - scd's -ppi - not indicated Dispo: transfer to M/S d/w with Dr. Nhan Corona MD PGY-1 Visit type - Emergency Visit Emergency Visit: No - New Patient This patient is new to me today: No - Critical Care Critical Care patient: Yes Total Critical Care Time (in minutes): 35 Critical Care Statement: The care of this patient involved high complexity decision making to prevent further life threatening deterioration of the patient 's condition and/or to evaluate & treat vital organ system(s) failure or risk of failure.
[2017-07-27] MEDS: LISINOPRIL 10 MG TABLET (FP) PO SCH (09:35)
[2017-07-27] MEDS: MUPIROCIN 2% TOPICAL OINTMENT FOR DECOLONIZATION NS SCH (09:36)
[2017-07-27] MEDS ORDERED: ASPIRIN COATED 81 MG TABLET.EC PO SCH (10:00)
[2017-07-27] MEDS ORDERED: amLODIPine BESYLATE 10 MG TABLET (FP) PO SCH (10:00)
--- NOTE | 2017-07-27 10:15 | PN ---
Progress Note (short form) - Note Progress Note: Neurology 47 y.o. F with pmh of HTN (not on meds) presenting with headache and chest tightness. 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 Headache was frontal, nonradiating, and constant. Chest tightness was under the left breast and right rib, pressure like, nonradiating. She completed CT head which was reviewed and there was concern for increased intracranial pressure. NSGY consulted, no surgical management, but patient beleived to be hypertensive urgency/emergency and sent to ICU where she remains under close monitoring. MRI brain completed and without acute changes. Clinically, patient's symptoms improved as blood pressure improved. Does not have visual symptoms, no blurry vision, no double vision, no scotomas. Labile blood pressure but has become more stable this AM. *Physical Exam Vital Signs Period Temp Pulse Resp BP Sys/Chance Pulse Ox Last 24 Hr 97.6 F-98.5 F 63-95 15-20 121-170/84-118 100 GENERAL: Awake, alert, and fully oriented, in no acute distress HEAD: No signs of trauma, normocephalic, atraumatic EYES: PERRLA, EOMI, sclera anicteric, conjunctiva clear ENT: Auricles normal inspection, hearing grossly normal, nares patent, oropharynx clear without exudates. Moist mucosa NECK: Normal ROM, supple, no lymphadenopathy, JVD, or masses LUNGS: No distress, speaks full sentences, clear to auscultation bilaterally HEART: Regular rate and rhythm, normal S1 and S2, no murmurs, rubs or gallops, peripheral pulses normal and equal bilaterally. ABDOMEN: Soft, nontender, normoactive bowel sounds. No guarding, no rebound. No masses EXTREMITIES: Normal inspection, Normal range of motion, no edema. No clubbing or cyanosis. NEUROLOGICAL: Cranial nerves II through XII grossly intact. Normal speech, no focal sensorimotor deficits. 5/5 strength bilaterally, sensation intact bilaterally. no cerebellar deficits. SKIN: Warm, Dry, normal turgor, no rashes or lesions noted. CBCD WBC 7.5 K/mm3 (4.0-10.0) 07/27/17 05:00 RBC 4.69 M/mm3 (3.60-5.2) 07/27/17 05:00 Hgb 14.3 GM/dL (10.7-15.3) 07/27/17 05:00 Hct 43.7 % (32.4-45.2) 07/27/17 05:00 MCV 93.2 fl (80-96) 07/27/17 05:00 MCHC 32.8 g/dl (32.0-36.0) 07/27/17 05:00 RDW 14.3 % (11.6-15.6) 07/27/17 05:00 Plt Count 235 K/MM3 (134-434) 07/27/17 05:00 MPV 8.8 fl (7.5-11.1) 07/27/17 05:00 CMP Sodium 139 mmol/L (136-145) 07/27/17 05:00 Potassium 4.5 mmol/L (3.5-5.1) 07/27/17 05:00 Chloride 104 mmol/L (98-107) 07/27/17 05:00 Carbon Dioxide 25 mmol/L (21-32) 07/27/17 05:00 Anion Gap 10 (8-16) 07/27/17 05:00 BUN 17 mg/dL (7-18) D 07/27/17 05:00 Creatinine 0.9 mg/dL (0.55-1.02) 07/27/17 05:00 Creat Clearance w eGFR > 60 (>60) 07/25/17 06:00 Calcium 9.1 mg/dL (8.5-10.1) 07/27/17 05:00 Total Bilirubin 0.4 mg/dL (0.2-1.0) 07/25/17 06:00 AST 13 U/L (15-37) L D 07/25/17 06:00 ALT 17 U/L (12-78) 07/25/17 06:00 Alkaline Phosphatase 65 U/L (45-117) 07/25/17 06:00 Total Protein 7.5 g/dl (6.4-8.2) 07/25/17 06:00 Albumin 3.8 g/dl (3.4-5.0) 07/25/17 06:00 - RADIOLOGY CT head and MRI brain reviewed Plan: 47 y.o. F with pmh of HTN (not on meds) presenting with headache and chest tightness. 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 Headache was frontal, nonradiating, and constant. Chest tightness was under the left breast and right rib, pressure like, nonradiating. She completed CT head which was reviewed and there was concern for increased intracranial pressure. NSGY consulted, no surgical management, but patient believed to be hypertensive urgency/emergency and sent to ICU where she remains under close monitoring. MRI brain completed and without acute changes. Clinically, patient's symptoms impoved as blood pressure improved. Does not have visual symptoms, no blurry vision, no double vision, no scotomas. BP labile but normotensive this AM, last one was 128/76 Goal <140 Neurologically improved Discharge planning Critical care time in ICU: 35 mins
--- NOTE | 2017-07-27 12:03 | PN ---
Teaching Attending Note Name of Resident: Kristina Corona ATTENDING PHYSICIAN STATEMENT I saw and evaluated the patient. I reviewed the resident's note and discussed the case with the resident. I agree with the resident's findings and plan as documented. SUBJECTIVE: Pt seen and examined in the ICU. Denies headache, nausea or vomiting. No shortness of breath or chest pain. OBJECTIVE: Last Vital Signs Temp Pulse Resp BP Pulse Ox 98.3 F 85 20 170/99 100 07/27/17 10:00 07/27/17 10:00 07/27/17 10:00 07/27/17 10:00 07/27/17 09:00 Intake & Output 07/24/17 07/25/17 07/26/17 07/27/17 23:59 23:59 23:59 23:59 Intake Total 696 91 8801 200 Balance 217 14 5035 200 Weight 135 lb 2 oz Gen: NAD at rest Heart: RRR Lung: decreased breath sounds at the bases Abd: soft, nontender Ext: no edema CBC, BMP 07/27/17 05:00 07/27/17 05:00 Active Medications Amlodipine Besylate (Norvasc -) 10 mg PO DAILY [facility] Last Admin: 07/27/17 09:35 Dose: 10 mg Aspirin (Ecotrin -) 81 mg PO DAILY [facility] Last Admin: 07/27/17 09:35 Dose: 81 mg Chlorhexidine Gluconate (Hibiclens For Decolonization -) 1 applic TP HS [facility] Last Admin: 07/26/17 21:35 Dose: 1 applic Hydralazine HCl (Apresoline Injection -) 10 mg IVPUSH Q6H PRN PRN Reason: HYPERTENSION Lisinopril (Prinivil) 20 mg PO BID [facility] Last Admin: 07/27/17 09:35 Dose: 20 mg Mupirocin (Bactroban Ointment (For Decolonization) -) 1 applic NS BID [facility] Stop: 07/28/17 21:59 Last Admin: 07/27/17 09:36 Dose: 1 applic ASSESSMENT AND PLAN: Hypertensive Urgency resolving Cocaine Use Smoker UTI treated - titrate BP meds - tobacco/cocaine cessation - s/p antibiotics - DVT prophylaxis - can monitor on floor
[2017-07-27] MEDS ORDERED: hydrALAZINE HCL 20 MG/ML VIAL IVPUSH PRN (12:36)
--- NOTE | 2017-07-27 12:59 | PN ---
Teaching Attending Note Name of Resident: Nixon Hensley ATTENDING PHYSICIAN STATEMENT I saw and evaluated the patient. I reviewed the resident's note and discussed the case with the resident. I agree with the resident's findings and plan as documented. SUBJECTIVE: No complaints. OBJECTIVE: Vital Signs Period Temp Pulse Resp BP Sys/Chance Pulse Ox Last 24 Hr 97.6 F-98.3 F 63-94 15-20 121-170/84-99 100-100 HEART: S1S2, RRR LUNGS: Clear ABDOMEN: Soft, non-tender, non-distended, normal BS EXTREMITIES: No edema Current Medications Generic Name Dose Route Start Last Admin Trade Name Freq PRN Reason Stop Dose Admin Amlodipine Besylate 10 mg 07/28/17 10:00 Norvasc - PO DAILY [facility] Aspirin 81 mg 07/28/17 10:00 Ecotrin - PO DAILY [facility] Chlorhexidine Gluconate 1 applic 07/27/17 22:00 Hibiclens For Decolonization - TP HS [facility] Hydralazine HCl 10 mg 07/27/17 12:36 Apresoline Injection - IVPUSH Q6H PRN HYPERTENSION Lisinopril 20 mg 07/27/17 22:00 Prinivil PO BID [facility] Mupirocin 1 applic 07/27/17 22:00 Bactroban Ointment (For Decolonization) - NS 07/28/17 21:59 BID [facility] ASSESSMENT AND PLAN: This is a 47 year old woman with a history of HTN, cocaine use who presented to the ER with headache, chest pain, slurred speech. 1. Hypertensive emergency - Resolved 2. HTN, uncontrolled - Continue Norvasc, Lisinopril - Add thiazide if BP remains uncontrolled - Echo shows normal size LV, low normal LVEF, normal size RV, trace MR, trace TR 3. Cocaine abuse - No signs of withdrawal 4. E. coli UTI - Completed Rocephin
[2017-07-27 14:49] VITALS: BP 146/92; PULSE 87; TEMP 97.9
[2017-07-27] MEDS ORDERED: HYDROCHLOROTHIAZIDE 25 MG TABLET (FP) PO ONE (15:27)
[2017-07-27] MEDS ORDERED: CHLORHEXIDINE GLUCONATE 4% CLEANSER FOR DECOLONIZATION TP SCH (22:00)
[2017-07-27] MEDS ORDERED: LISINOPRIL 20 MG TABLET (FP) PO SCH (22:00)
[2017-07-27] MEDS ORDERED: MUPIROCIN 2% TOPICAL OINTMENT FOR DECOLONIZATION NS SCH (22:00)
[2017-07-28] MEDS ORDERED: ASPIRIN COATED 81 MG TABLET.EC PO SCH (10:00)
[2017-07-28] MEDS ORDERED: amLODIPine BESYLATE 10 MG TABLET (FP) PO SCH (10:00)
--- NOTE | 2017-07-28 19:10 | DS ---
Physical Exam: SUBJECTIVE: Patient seen and examined at bedside. Patient continues to improve clinically. No headaches or blurry vision overnight. OBJECTIVE: PHYSICAL EXAM GENERAL: The patient is awake, alert, and fully oriented, in no acute distress. HEAD: Normal with no signs of trauma. EYES: extraocular movements intact, sclera anicteric, conjunctiva clear. NECK: Trachea midline, full range of motion, supple. LUNGS: Breath sounds equal, clear to auscultation bilaterally, no wheezes, no crackles, no accessory muscle use. HEART: Regular rate and rhythm, S1, S2 without murmur, rub or gallop. ABDOMEN: Soft, nontender, nondistended, normoactive bowel sounds, no guarding, no rebound, no hepatosplenomegaly, no masses. EXTREMITIES: 2+ pulses, warm, well-perfused, no edema. NEUROLOGICAL: Cranial nerves II through X grossly intact. Normal speech, gait not observed. PSYCH: Normal mood, normal affect. SKIN: Warm, dry, normal turgor, no rashes or lesions noted. LABS HOSPITAL COURSE: Date of Admission:07/23/17 The patient mela 47 yo f who presented to the ED c/o KNIGHT, chest tightness and high blood pressure for 1 day. She also complained of slurred speech and blurry vision. Patient was an active cocaine user with the last use being one week prior to admission as per patient. In the ED she was found to be hypertensive to 204/108. A CT of the head was concerning for papilledema and increased ICP. The patient was admitted to the ICU. MRI was within normal limits. Neruosurgery and neurology were called. Both services agreed with medical management. The patient was treated with hydralazine, norvasc, aspirin, lisinopril and HCTZ. Her blood pressure returned to normal and stabilized. She was discharged home on asa 81, norvasc and a combination pill with lisinopril and HCTZ. She was advised to follow up with her PCP within one week of discharge to manage her BP meds. She was also advised to follow up with an electrical lineworker to evaluate her vision changes and papilledema. Date of Discharge: 07/28/17 Minutes to complete discharge: 20 Discharge Summary Reason For Visit: HYPERTENSIVE EMERGENCY Condition: Improved - Instructions Diet, Activity, Other Instructions: You were admitted for the treatment of your very high blood pressure. We are sending you home on some new medications to control your pressure. The first medication is a combination pill of lisinopril and hydrochlorothiazide. You should take one combination pill twice per day. The second medication is called amlodipine (Norvasc). You should take 10mg of this medication once per day. We are also sending you home with a baby aspirin to take. This will reduce your risk of developing blood clots and having a stroke. You should take 81mg of this medication every day. You should follow up with your primary care physician within one week of discharge home. He will be able to adjust your blood pressure medication to keep you pressure in a safe range. You should also follow up with our electrical lineworker, Dr. Ryan, within one week to check your eyes as you were having some blurry vision. If your experience severe headaches , vision changes or if any of your symptoms get worse, please call your doctor or return to the ED. Referrals: Mattie Ryan MD [Staff Physician] - Adan Dorman [Primary Care Provider] - Disposition: HOME - Home Medications Comprehensive Discharge Medication List: Ambulatory Orders Amlodipine Besylate [Norvasc -] 10 mg PO DAILY #30 tablet 07/26/17 Aspirin Coated [Ecotrin -] 81 mg PO DAILY #30 tab 07/26/17 Lisinopril/Hydrochlorothiazide [Lisinopril-Hctz 20-12.5 mg Tab] 1 each PO BID # 60 tablet 07/27/17 Miscellaneous Medical Supply [Blood Pressure Cuff] 1 each [facility] ASDIR #1 each 07/27 Problem List - Problems (1) Hypertensive emergency Code(s): I16.1 - HYPERTENSIVE EMERGENCY This patient is new to me today: No Emergency Visit: Yes ED Registration Date: 07/23/17 Care time: The patient presented to the Emergency Department on the above date and was hospitalized for further evaluation of their emergent condition. Critical Care patient: No - Discharge Referral Referred to [facility] No
== END 2017-07-27 18:00 | disposition home or self-care (01) | DRG 199 ==
LOC: SUPCPDRO 09:38 → JER 09:38 → JERBED 14:45 → J4W 16:06 → JICU 17:17 → J7W 07-27 14:36
PROVIDERS: ADMIT Internal Medicine; ATTEND Internal Medicine
DX: I16.1 Hypertensive emergency (principal); G93.6 Cerebral edema; N39.0 Urinary tract infection, site not specified; F12.10 Cannabis abuse, uncomplicated; I16.0 Hypertensive urgency; J32.9 Chronic sinusitis, unspecified; F17.210 Nicotine dependence, cigarettes, uncomplicated; F14.10 Cocaine abuse, uncomplicated; B96.20 Unspecified Escherichia coli [E. coli] as the cause of diseases classified elsewhere
CPT/HCPCS: 36415; 70450-TC; 70553-TC; 71010-TC; 76775-TC; 80048; 80053; 80061; 80307; 81003; 81015; 83036; 83721; 83735; 84100; 84484; 84703; 85025; 85027; 87086; 87186; 93005; 93010; 93306-TC; 99285-25; A9576

== ENCOUNTER 2020-10-28 13:32 | Emergency (ER) | payer OTHER ==
[2020-10-28] MEDS ORDERED: ACETAMINOPHEN 1000 MG/100 ML BAG IVPB ONE (13:48)
[2020-10-28] MEDS ORDERED: ASPIRIN 325 MG TABLET PO ONE (13:53)
[2020-10-28 13:58] VITALS: BMI 23.3
[2020-10-28] MEDS ORDERED: ASPIRIN 325 MG ENTERIC COATED TABLET (FP) ONE (14:09)
[2020-10-28] MEDS ORDERED: ACETAMINOPHEN INJECTION 100 ML IVPB ONE (14:10)
[2020-10-28] MEDS ORDERED: HYDROCHLOROTHIAZIDE 25 MG TABLET (FP) PO ONE (14:20)
[2020-10-28 14:34] LABS: BASO % 0.9 % (0-2.0); EOS % 1.3 % (0-4.5); HEMATOCRIT 41.4 % (32.4-45.2); HEMOGLOBIN 13.5 GM/dL (10.7-15.3); LYMPH % 21.8 % (8-40); MCH 29.8 pg (25.7-33.7); MCHC 32.5 g/dl (32.0-36.0); MEAN CELL VOLUME 91.5 fl (80-96); MEAN PLT VOLUME 9.1 fl (7.5-11.1); MONO % 9.8 % (3.8-10.2); NEUT % 66.2 % (42.8-82.8); PLATELET COUNT 264 K/MM3 (134-434); RBC 4.52 M/mm3 (3.60-5.2); RDW 14.4 % (11.6-15.6); WHITE BLOOD COUNT 9.2 K/mm3 (4.0-10.0)
[2020-10-28 14:38] LABS: PROTHROMBIN TIME (PATIENT) 12.1 SEC (9.7-13.0)
[2020-10-28 14:48] LABS: CHLORIDE 104 mmol/L (98-107); SODIUM 137 mmol/L (136-145)
[2020-10-28] MEDS ORDERED: HYDROCHLOROTHIAZIDE 25 MG TABLET (FP) ONE (14:50)
[2020-10-28 14:53] LABS: CALCIUM 9.5 mg/dL (8.5-10.1)
[2020-10-28 14:54] LABS: ALBUMIN 4.5 g/dl (3.4-5.0); ANION GAP 11 MMOL/L (8-16); CO2 22 mmol/L (21-32); GLUCOSE,RANDOM 85 mg/dL (74-106); MAGNESIUM 1.9 mg/dL (1.8-2.4)
[2020-10-28 14:57] LABS: CREATININE 1.1 mg/dL (0.55-1.3); SGOT/AST 14 U/L (15-37); SGPT/ALT 16 U/L (13-61)
[2020-10-28 14:58] LABS: BILIRUBIN,TOTAL 0.5 mg/dL (0.2-1); TOT PROT 8.4 g/dl (6.4-8.2)
[2020-10-28 15:00] LABS: ALK PHOS 72 U/L (45-117)
[2020-10-28 15:55] VITALS: BP 181/157; PULSE 84; TEMP 98.6
== END 2020-10-28 18:47 | disposition home or self-care (01) ==
LOC: JER 13:32
PROC: 3E0333Z Introduction of Anti-inflammatory into Peripheral Vein, Percutaneous Approach (ICD-10-PCS; principal; 2020-10-28)
DX: F41.0 Panic disorder [episodic paroxysmal anxiety] (principal); R07.9 Chest pain, unspecified
CPT/HCPCS: 36415; 71045-TC-FY; 80053; 82550; 83735; 84484; 85025; 85610; 93005; 93010; 99285-25; J0131

== ENCOUNTER 2022-04-21 11:14 | Emergency (ER) | payer OTHER ==
[2022-04-21 11:45] VITALS: BMI 24.1
[2022-04-21 13:47] VITALS: BP 156/114; PULSE 78; TEMP 98.4
[2022-04-21 14:18] LABS: BASO % 0.4 % (0-2.0); EOS % 0.4 % (0-4.5); HEMATOCRIT 41.9 % (32.4-45.2); HEMOGLOBIN 13.9 GM/dL (10.7-15.3); LYMPH % 13.2 % (8-40); MCHC 33.1 g/dl (32.0-36.0); MEAN CELL VOLUME 87.8 fl (80-96); MEAN PLT VOLUME 8.8 fl (7.5-11.1); MONO % 19.1 % (3.8-10.2); NEUT % 66.9 % (42.8-82.8); PLATELET COUNT 189 10^3/uL (134-434); RBC 4.77 M/mm3 (3.60-5.2); RDW 14.2 % (11.6-15.6)
[2022-04-21 14:34] LABS: CALCIUM 9.7 mg/dL (8.5-10.1)
[2022-04-21 14:35] LABS: ALBUMIN 4.4 g/dl (3.4-5.0)
[2022-04-21 14:38] LABS: CREATININE 1.2 mg/dL (0.55-1.3)
[2022-04-21 14:40] LABS: BILIRUBIN,TOTAL 0.4 mg/dL (0.2-1); TOT PROT 8.6 g/dl (6.4-8.2)
[2022-04-21 15:06] LABS: EPI CELLS >36 /uL (0-25.1); HYALINE CASTS 16 /uL (0-3.1); PH,URINE 5.5 (5.0-8.0); URINE APPEARANCE CLOUDY; URINE BACTERIA 608 /uL (0-1359); URINE BILIRUBIN NEGATIVE (NEGATIVE); URINE COLOR DK YELLOW; URINE GLUCOSE (UA) NEGATIVE (NEGATIVE); URINE KETONE 1+ (NEGATIVE); URINE LEUK ESTERASE NEGATIVE (NEGATIVE); URINE NITRITE NEGATIVE (NEGATIVE); URINE PROTEIN 1+ (NEGATIVE); URINE RBC 16 /uL (0-23.9); URINE UROBILINOGEN 0.2 mg/dL (0.2-1.0); URINE WBC 48 /uL (0-25.8)
[2022-04-21] MEDS ORDERED: POTASSIUM CHLORIDE TABS 20 MEQ TABLET.ER (FP) PO ONE ×2 (15:35→15:54)
== END 2022-04-21 17:23 | disposition home or self-care (01) ==
LOC: JER 11:14
DX: I16.0 Hypertensive urgency (principal); I42.2 Other hypertrophic cardiomyopathy; M54.50 Low back pain, unspecified
CPT/HCPCS: 36415; 70450-TC; 71046-TC-FY; 80053; 81003; 84484; 85025; 87086; 93005; 93010; 99285-25

== ENCOUNTER 2024-10-14 15:32 | Emergency (ER) | payer OTHER ==
[2024-10-14 16:35] VITALS: BMI 24.4
[2024-10-14] MEDS ORDERED: LEVALBUTEROL HCL 0.31 MG/3 ML VIAL.NEB IH PRN (16:38)
[2024-10-14] MEDS ORDERED: ONDANSETRON 4 MG/2 ML VIAL ONE (17:24)
[2024-10-14] MEDS ORDERED: morphine SULFATE 4 MG/ML VIAL ONE (17:25)
[2024-10-14] MEDS ORDERED: methylPREDNISolone NA SUCC 125 MG/2 ML VIAL ONE (17:25)
[2024-10-14] MEDS: morphine SULFATE 4 MG/ML VIAL IVPUSH ONE (17:57)
[2024-10-14] MEDS: LACTATED RINGERS SOLUTION 1000 ML INFUS.BAG IV ONE (17:57)
[2024-10-14] MEDS: ONDANSETRON 4 MG/2 ML VIAL IVPUSH ONE (17:57)
[2024-10-14] MEDS: methylPREDNISolone NA SUCC 125 MG/2 ML VIAL IVPB ONE (17:57)
[2024-10-14 18:09] LABS: BASO % 0.6 % (0-2.0); HEMATOCRIT 41.3 % (32.4-45.2); HEMOGLOBIN 13.2 GM/dL (10.7-15.3); LYMPH % 9.9 % (8-40); MCH 28.1 pg (25.7-33.7); MEAN PLT VOLUME 8.9 fl (7.5-11.1); MONO % 10.8 % (3.8-10.2); NEUT % 78.7 % (42.8-82.8); PLATELET COUNT 193 10^3/uL (134-434); RBC 4.69 M/mm3 (3.60-5.2); RDW 14.2 % (11.6-15.6); WHITE BLOOD COUNT 14.9 K/mm3 (4.0-10.0)
[2024-10-14 18:33] LABS: POTASSIUM 3.4 mmol/L (3.5-5.1)
[2024-10-14 18:35] LABS: ALBUMIN 3.4 g/dl (3.4-5.0); BLOOD UREA NITROGEN 12.8 mg/dL (7-18); CALCIUM 9.2 mg/dL (8.5-10.1)
[2024-10-14 18:39] LABS: CREATININE 0.9 mg/dL (0.55-1.3)
[2024-10-14 18:40] LABS: BILIRUBIN,TOTAL 0.4 mg/dL (0.2-1); TOT PROT 7.6 g/dl (6.4-8.2)
[2024-10-14 18:45] LABS: N-TERMINAL BNP 138.8 pg/ml (5-125)
[2024-10-14 19:50] LABS: EPI CELLS 18 /uL (0-25.1); HYALINE CASTS 1 /uL (0-3.1); URINE APPEARANCE CLEAR; URINE BACTERIA 158 /uL (0-1359); URINE BILIRUBIN NEGATIVE (NEGATIVE); URINE COLOR YELLOW; URINE GLUCOSE (UA) NEGATIVE (NEGATIVE); URINE KETONE 1+ (NEGATIVE); URINE LEUK ESTERASE NEGATIVE (NEGATIVE); URINE NITRITE NEGATIVE (NEGATIVE); URINE PROTEIN 4+ (NEGATIVE); URINE RBC 17 /uL (0-23.9); URINE WBC 17 /uL (0-25.8)
[2024-10-14 20:51] VITALS: BP 168/105; PULSE 97; RESP 18; TEMP 99.6
== END 2024-10-14 22:20 | disposition home or self-care (01) ==
LOC: JER 15:32
PROC: 3E033GC Introduction of Other Therapeutic Substance into Peripheral Vein, Percutaneous Approach (ICD-10-PCS; principal; 2024-10-14)
PROC: 3E033NZ Introduction of Analgesics, Hypnotics, Sedatives into Peripheral Vein, Percutaneous Approach (ICD-10-PCS; 2024-10-14)
PROC: 3E033GC Introduction of Other Therapeutic Substance into Peripheral Vein, Percutaneous Approach (ICD-10-PCS; 2024-10-14)
DX: J10.1 Influenza due to other identified influenza virus with other respiratory manifestations (principal); E86.9 Volume depletion, unspecified; R06.02 Shortness of breath; R05.9 Cough, unspecified; R11.2 Nausea with vomiting, unspecified; R07.9 Chest pain, unspecified; R50.9 Fever, unspecified; Z20.822 Contact with and (suspected) exposure to COVID-19
CPT/HCPCS: 0241U-QW; 36415; 71275-TC; 74177-TC; 80053; 81003; 83735; 83880; 84484; 85025; 86850; 86900; 86901; 87086; 93005; 93010; 99285-25